=== PATIENT | male | born 1960 | race Caucasian/White ===

== ENCOUNTER → 2019-12-04 10:22 | Outpatient (BNVA) | payer MEDICAID, SELFPAY | PROVIDERS: Family Provider Family Medicine; Referring Provider Family Medicine; Visit Provider Otolaryngology | DX: H93.12 Tinnitus, left ear (principal); H91.92 Unspecified hearing loss, left ear; J32.9 Chronic sinusitis, unspecified; J34.2 Deviated nasal septum; J34.3 Hypertrophy of nasal turbinates | CPT/HCPCS: 99203; 99214 ==

== ENCOUNTER 2019-12-14 13:41 | Outpatient (CLI) | payer MEDICAID, SELFPAY ==
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
== END 2019-12-14 13:42 | disposition home or self-care (01) ==
LOC: CT 13:42
PROVIDERS: Family Provider Family Medicine; PCP Family Medicine; Visit Provider Otolaryngology
DX: J32.9 Chronic sinusitis, unspecified (principal); H91.90 Unspecified hearing loss, unspecified ear; H93.19 Tinnitus, unspecified ear; J34.2 Deviated nasal septum; J34.3 Hypertrophy of nasal turbinates
CPT/HCPCS: 70480; 70486

== ENCOUNTER → 2019-12-19 13:15 | Outpatient (BNVA) | payer MEDICAID, SELFPAY | PROVIDERS: Family Provider Family Medicine; PCP Family Medicine; Visit Provider Otolaryngology | DX: H91.93 Unspecified hearing loss, bilateral (principal); H93.13 Tinnitus, bilateral; J34.2 Deviated nasal septum; J34.3 Hypertrophy of nasal turbinates; J32.9 Chronic sinusitis, unspecified; J32.8 Other chronic sinusitis | CPT/HCPCS: 96372; 99214; J3301 ==

== ENCOUNTER 2020-05-17 18:27 | Emergency (ER) | payer MEDICAID, SELFPAY ==
[2020-05-17 18:37] VITALS: BP 193/103; PULSE 95; RESP 16; TEMP 36.6; O2SAT 95; BMI 35.9
--- NOTE | 2020-05-17 18:52 | W.ED.BACK ---
HPI - Back Pain/Injury General: Chief Complaint: Back Pain/Injury Stated Complaint: mid back pain Time Seen by Provider: 05/17/20 18:47 History of Present Illness: HPI Narrative: Patient is a 60-year-old male who comes to the ED with thoracic back pain. He denies any injury trauma or accident to cause back pain. Patient says he has a past medical history of chronic lower back pain and has had a lumbar fusion surgery in 2010. He currently rates the pain a 9 out of 10. It is located midthoracic on both right and left sides. He has been taking ibuprofen for the pain at home. Patient denies any bladder or bowel incontinence, loss of sensation the pelvic region, weakness or numbness to lower extremities. Denies any pain radiating down the leg. Associated symptoms: Deny abdominal pain, chills, dysuria, fatigue, fever(s), hematuria, nausea or vomiting Review of Systems Const: Denies: fever(s), chills or fatigue Eyes: Denies: change in vision or eye discomfort ENMT: Denies: throat pain, odynophagia, nasal discharge or nasal congestion Card: Denies: chest pain, palpitations, edema, swelling of feet/ankles, dyspnea on exertion or orthopnea Resp: Denies: dyspnea, productive cough or non-productive cough GI: Denies: abdominal pain, nausea, vomiting, diarrhea, constipation or hematochezia : Denies: flank pain, difficulty urinating, dysuria or hematuria Musc: Reports: back pain; Denies: neck pain or extremity swelling Skin/Breast: Denies: rash or new lesions Neuro: Denies: headache(s), numbness in extremities or weakness in extremities [facility] ED PFSH: Medical History Chronic sinusitis Hearing loss Nasal septal deformity Nasal turbinate hypertrophy Tinnitus Family History Other Cancer Diabetes Hypertension Social History Smoking and tobacco status: former smoker Alcohol intake: never Physical Exam Const: COMMON NORMALS: no acute distress, patient oriented x3 and alert GENERAL APPEARANCE: cooperative and comfortable HENMT: COMMON NORMALS: normocephalic HEAD & SCALP: normocephalic MOUTH: Normal oral and palatal mucosa present THROAT: posterior oropharynx normal and uvula midline Eye: COMMON NORMALS: Equal, round and reactive pupils present PUPIL: Yes Equal, round and reactive pupils present Neck/C-Spine: COMMON NORMALS: supple GENERAL: Yes normal visual inspection Resp: COMMON NORMALS: normal respiratory effort, No retractions, No use of accessory muscles and clear to auscultation bilaterally AUSCULTATION: clear to auscultation bilaterally Cardio: COMMON NORMALS: regular rate, regular rhythm, S1 normal heart sound present, S2 normal heart sound present, No gallops present (Cardio), No clicks present (Cardio), No murmurs present (Cardio) and Peripheral pulses 2+ throughout RATE: regular rate RHYTHM: regular rhythm HEART SOUNDS: S1 normal heart sound present and S2 normal heart sound present PERIPHERAL PULSES: Peripheral pulses 2+ throughout GI: COMMON NORMALS: Normal to inspection, nondistended, normoactive bowel sounds present, Soft to palpation, non-tender and no masses PALPATION: Yes Soft to palpation : COMMON NORMALS: Yes no CVA tenderness BLADDER/KIDNEY EXAM: Yes no CVA tenderness Back/Pelvis: COMMON NORMALS: no CVA tenderness THORACIC SPINE/UPPER BACK: Yes paraspinal muscle tenderness Thoracic paraspinal muscle tenderness: bilateral Bilateral thoracic paraspinal muscle tenderness: T9, T10 and T11 Extremity: COMMON NORMALS: normal to inspection and no pedal edema Neuro: COMMON NORMALS: patient oriented x3 and moves all extremities SENSORIUM/ORIENTATION: Yes alert Skin: COMMON NORMALS: no rashes or lesions noted GENERAL SKIN EXAM: no rashes or lesions noted and dry skin Course Vital Signs: Vital signs: Vital Signs Temperature 97.9 F 05/17/20 18:37 Pulse Rate 95 05/17/20 18:37 Respiratory Rate 16 05/17/20 19:54 Blood Pressure 193/103 05/17/20 18:37 Pulse Oximetry 95 05/17/20 18:37 MDM - Back Pain/Injury MDM Narrative: Medical decision making narrative: Patient is a 60-year-old male who comes to the ED with nontraumatic thoracic back pain. Pain had been going on for the past 2 weeks. Patient has a past medical history of chronic lower back pain. Denies bladder and bowel incontinence, pelvic anesthesia, weakness or numbness to extremities, or pain radiating down any leg. Patient had paraspinal muscle tenderness bilaterally of the thoracic spine. Patient was given a shot of Toradol, Norflex and hydrocodone to help with pain. He was discharged with a prescription for Robaxin and told to continue taking his ibuprofen at home for pain as well. Apply ice and/or heat on lower back. Follow-up with PCP in 7 to 10 days for reevaluation. Return to ED precautions given. Patient understood and agreed with plan. Discharge Plan Discharge Patient Disposition: Home Clinical Impression: Thoracic back pain Qualifiers: Chronicity: acute Back pain laterality: bilateral Qualified Code(s): M54.6 - Pain in thoracic spine Condition: Stable Prescriptions: No Action losartan 50 mg tablet 50 mg PO DAILY RF: 0 levothyroxine 50 mcg capsule 50 mcg PO DAILY RF: 0 insulin lispro [Humalog KwikPen Insulin] 100 unit/mL insulin pen 12 unit SUBCUT TID RF: 0 Levemir FlexTouch U-100 Insuln 100 unit/mL (3 mL) insulin pen 100 unit SUBCUT DAILY RF: 0 meloxicam 15 mg tablet 15 mg PO DAILY RF: 0 Victoza 3-Osbaldo 0.6 mg/0.1 mL (18 mg/3 mL) pen injector See Rx Instructions .ROUTE .COMPLEX RF: 0 Discharge Orders: Discharge Order (Routine); Ordered 05/17/20 Ordered By: Arvind Black Referrals: Lenore Staton MD [Primary Care Provider] - Discharge Diet: Regular Discharge Activity: Increase activity as tolerated Patient Instructions: Back Pain (ED) Activity Restrictions/Additional Instructions: Follow-up with medical provider as directe 7-10 days. Continue taking ibuprofen or Tylenol for pain. Take medications as prescribed. Robaxin is a muscle relaxer and can cause drowsiness so take at night before going to bed. You can take the muscle relaxer during the day but use with caution due to its drowsiness side effect. Apply cold pack or heat on back and stretch daily. Return to the ER or your medical provider if condition worsens. Please read and understand discharge instructions. If any questions, please ask. 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
[2020-05-17] MEDS: HYDROcodone-acetaminophen 7.5-325 mg Tablet 1 TAB PO (19:42)
[2020-05-17] MEDS: ketorolac 60 mg/2 mL INJ IM (19:43)
[2020-05-17] MEDS: orphenadrine 30 mg/mL Inj 2 mL 60 MG IM (19:46)
[2020-05-17 19:54] VITALS: RESP 16
== END 2020-05-17 19:56 | disposition home or self-care (01) ==
PROVIDERS: Emergency Provider Physician Assistant; PCP Family Medicine
DX: M54.6 Pain in thoracic spine (principal); Z79.4 Long term (current) use of insulin; Z87.891 Personal history of nicotine dependence
CPT/HCPCS: 12345; 96372; 99281; 99283; J1885; J2360

== ENCOUNTER 2020-09-18 10:30 | Outpatient (CLI) | payer MEDICAID, SELFPAY ==
[2020-09-18 12:19] LABS: Basophils # 0.1 10^3/uL (0.0-0.1); Basophils % 0.9 %; Eosinophils # 0.2 10^3/uL (0.0-0.8); Eosinophils % 1.4 %; Hematocrit 56.7 % (42.0-52.0); Hemoglobin 18.7 g/dL (11.7-16.6); Lymphocytes % 25.6 %; Mean Corpuscular Hemoglobin 28.8 pg (28.0-34.0); Mean Corpuscular Volume 87.2 fL (80-94); Mean Platelet Volume 9.6 fL (7.4-10.4); Monocytes # 0.6 10^3/uL (0.2-0.9); Monocytes % 4.8 %; Neutrophils # 7.79 10^3/uL (1.8-7.7); Neutrophils % 67.1 %; Nucleated Red Blood Cells % 0 %; Platelet Count 257 10^3/cmm (130-400); Red Cell Distribution Width 14.1 % (12.1-15.1); White Blood Count 11.6 10^3/uL (4.0-10.0)
[2020-09-18 12:40] LABS: Alanine Aminotransferase 33 U/L (0-41); Albumin Level 4.1 g/dL (3.5-5.2); Alkaline Phosphatase 96 IU/L (40-130); Anion Gap 14.1 (5-19); Aspartate Amino Transferase 21 U/L (0-40); Blood Urea Nitrogen 11 mg/dL (6-20); Calcium 9.1 mg/dL (8.5-10.5); Carbon Dioxide 25 mmol/L (22-29); Chloride 100 mmol/L (98-107); Globulin 3.1 g/dL (1.3-4.6); Glomerular Filtration Rate 138.4 mL/min (90-130); Glucose 209 mg/dL (65-115); Lactate Dehydrogenase 200 U/L (135-225); Osmolality Calculated 286 mOsm/kg (285-295); Potassium 4.1 mmol/L (3.5-5.1); Sodium 135 mmol/L (136-145); Total Bilirubin 0.4 mg/dL (0.15-1.2); Total Protein 7.2 g/dL (6.6-8.7)
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
[2020-09-19 16:08] LABS: Erythropoietin 8.6 mIU/mL (2.6-18.5)
[2020-10-02 13:57] LABS: CALR Exon 9 Mutation NOT DETECTED (NOT DETECTED); CSF3R Exon 14/17 Mutation NOT DETECTED (NOT DETECTED); JAK2 Exon 12 Mutation NOT DETECTED (NOT DETECTED); JAK2 V617 Clinical Indication 5784600; JAK2 V617 Mutation NOT DETECTED (NOT DETECTED); JAK2 V617 Specimen Source EDTA; MPL Exon 12 Mutation NOT DETECTED (NOT DETECTED)
== END 2020-09-18 10:31 | disposition home or self-care (01) ==
LOC: ONCMED 10:32
PROVIDERS: PCP Nurse Practitioner Family; Visit Provider Internal Medicine Medical Oncology
DX: D75.1 Secondary polycythemia (principal); E11.42 Type 2 diabetes mellitus with diabetic polyneuropathy; I10 Essential (primary) hypertension; E78.5 Hyperlipidemia, unspecified; E03.9 Hypothyroidism, unspecified; M47.9 Spondylosis, unspecified; F41.9 Anxiety disorder, unspecified; F32.9 Major depressive disorder, single episode, unspecified
CPT/HCPCS: 36415; 80053; 82668; 83615; 85025; 99205

== ENCOUNTER 2020-09-20 05:53 | Outpatient (CLI) | payer MEDICAID, SELFPAY | END 2020-09-20 05:54 | disposition home or self-care (01) | LOC: ONCMED 05:54 | PROVIDERS: PCP Nurse Practitioner Family; Visit Provider Internal Medicine Medical Oncology | DX: D75.1 Secondary polycythemia (principal); E11.42 Type 2 diabetes mellitus with diabetic polyneuropathy; I10 Essential (primary) hypertension | CPT/HCPCS: 99195 ==

== ENCOUNTER → 2020-09-26 09:09 | Outpatient (BNVA) | payer MEDICAID, SELFPAY | PROVIDERS: PCP Nurse Practitioner Family; Referring Provider Nurse Practitioner Family; Visit Provider Anesthesiology | DX: M54.9 Dorsalgia, unspecified (principal); W34.00XD Accidental discharge from unspecified firearms or gun, subsequent encounter; G89.29 Other chronic pain; E11.40 Type 2 diabetes mellitus with diabetic neuropathy, unspecified; F17.220 Nicotine dependence, chewing tobacco, uncomplicated; Z71.6 Tobacco abuse counseling; Z79.891 Long term (current) use of opiate analgesic; Z79.4 Long term (current) use of insulin | CPT/HCPCS: 99204 ==

== ENCOUNTER 2020-10-22 13:15 | Outpatient (CLI) | payer MEDICAID, SELFPAY ==
[2020-10-22 14:21] LABS: Basophils # 0.1 10^3/uL (0.0-0.1); Basophils % 0.6 %; Eosinophils # 0.1 10^3/uL (0.0-0.8); Eosinophils % 0.6 %; Hematocrit 55.8 % (42.0-52.0); Hemoglobin 18.1 g/dL (11.7-16.6); Lymphocytes # 3.3 10^3/uL (0.8-4.8); Lymphocytes % 26.5 %; Mean Corpuscular HGB Conc 32.4 g/dL (30.0-36.0); Mean Corpuscular Hemoglobin 28.5 pg (28.0-34.0); Mean Corpuscular Volume 87.9 fL (80-94); Mean Platelet Volume 9.9 fL (7.4-10.4); Monocytes # 0.6 10^3/uL (0.2-0.9); Monocytes % 4.7 %; Neutrophils # 8.26 10^3/uL (1.8-7.7); Neutrophils % 67.3 %; Nucleated Red Blood Cells % 0 %; Platelet Count 282 10^3/cmm (130-400); Red Blood Count 6.35 10^6/uL (4.1-5.3); Red Cell Distribution Width 13.5 % (12.1-15.1); White Blood Count 12.3 10^3/uL (4.0-10.0)
== END 2020-10-22 13:16 | disposition home or self-care (01) ==
LOC: ONCMED 13:17
PROVIDERS: PCP Nurse Practitioner Family; Visit Provider Internal Medicine Medical Oncology
DX: D75.1 Secondary polycythemia (principal); E11.42 Type 2 diabetes mellitus with diabetic polyneuropathy; I10 Essential (primary) hypertension
CPT/HCPCS: 36415; 85025; 99195

== ENCOUNTER → 2020-10-25 08:46 | Outpatient (BNVA) | payer MEDICAID, SELFPAY | PROVIDERS: PCP Nurse Practitioner Family; Visit Provider Anesthesiology | DX: G89.29 Other chronic pain (principal); M54.9 Dorsalgia, unspecified; W34.00XA Accidental discharge from unspecified firearms or gun, initial encounter; M25.561 Pain in right knee; M25.562 Pain in left knee; F17.220 Nicotine dependence, chewing tobacco, uncomplicated; X58.XXXA Exposure to other specified factors, initial encounter; Z79.891 Long term (current) use of opiate analgesic | CPT/HCPCS: 99214 ==

== ENCOUNTER → 2020-10-31 08:45 | Outpatient (BNVA) | payer MEDICAID, SELFPAY | PROVIDERS: PCP Nurse Practitioner Family; Visit Provider Anesthesiology | DX: G89.29 Other chronic pain (principal); M25.561 Pain in right knee; M25.562 Pain in left knee; F17.220 Nicotine dependence, chewing tobacco, uncomplicated; Z79.891 Long term (current) use of opiate analgesic | CPT/HCPCS: 20610; 77002; 77003; J1030; J3490 ==

== ENCOUNTER 2020-11-22 09:18 | Outpatient (CLI) | payer MEDICAID, SELFPAY ==
[2020-11-22 09:54] LABS: Basophils # 0.1 10^3/uL (0.0-0.1); Basophils % 0.9 %; Eosinophils # 0.3 10^3/uL (0.0-0.8); Eosinophils % 2.5 %; Hematocrit 51.9 % (42.0-52.0); Hemoglobin 16.6 g/dL (11.7-16.6); Lymphocytes # 3.5 10^3/uL (0.8-4.8); Lymphocytes % 33.1 %; Mean Corpuscular Hemoglobin 28.4 pg (28.0-34.0); Mean Corpuscular Volume 88.9 fL (80-94); Mean Platelet Volume 9.9 fL (7.4-10.4); Monocytes # 0.7 10^3/uL (0.2-0.9); Monocytes % 6.2 %; Neutrophils # 5.98 10^3/uL (1.8-7.7); Neutrophils % 57.1 %; Nucleated Red Blood Cells % 0 %; Platelet Count 262 10^3/cmm (130-400); Red Blood Count 5.84 10^6/uL (4.1-5.3); Red Cell Distribution Width 13.4 % (12.1-15.1); White Blood Count 10.5 10^3/uL (4.0-10.0)
== END 2020-11-22 09:19 | disposition home or self-care (01) ==
LOC: ONCMED 09:20
PROVIDERS: PCP Nurse Practitioner Family; Visit Provider Internal Medicine Medical Oncology
DX: D75.1 Secondary polycythemia (principal); E11.9 Type 2 diabetes mellitus without complications; G62.9 Polyneuropathy, unspecified; I10 Essential (primary) hypertension
CPT/HCPCS: 36415; 85025

== ENCOUNTER → 2020-12-18 13:23 | Outpatient (BNVA) | payer MEDICAID, SELFPAY | PROVIDERS: PCP Nurse Practitioner Family; Visit Provider Anesthesiology | DX: G89.29 Other chronic pain (principal); M54.9 Dorsalgia, unspecified; W34.00XA Accidental discharge from unspecified firearms or gun, initial encounter; M25.561 Pain in right knee; M25.562 Pain in left knee; X58.XXXA Exposure to other specified factors, initial encounter; F17.220 Nicotine dependence, chewing tobacco, uncomplicated; Z79.891 Long term (current) use of opiate analgesic | CPT/HCPCS: 99214 ==

== ENCOUNTER 2020-12-19 12:14 | Outpatient (CLI) | payer MEDICAID, SELFPAY ==
[2020-12-19 12:58] LABS: Basophils # 0.1 10^3/uL (0.0-0.1); Eosinophils # 0.2 10^3/uL (0.0-0.8); Eosinophils % 1.6 %; Hematocrit 52.2 % (42.0-52.0); Hemoglobin 17.1 g/dL (11.7-16.6); Lymphocytes # 2.7 10^3/uL (0.8-4.8); Lymphocytes % 23.7 %; Mean Corpuscular HGB Conc 32.8 g/dL (30.0-36.0); Mean Corpuscular Hemoglobin 28.4 pg (28.0-34.0); Mean Corpuscular Volume 86.7 fL (80-94); Mean Platelet Volume 10.1 fL (7.4-10.4); Monocytes # 0.6 10^3/uL (0.2-0.9); Monocytes % 5.6 %; Neutrophils # 7.67 10^3/uL (1.8-7.7); Neutrophils % 67.9 %; Nucleated Red Blood Cells % 0 %; Platelet Count 264 10^3/cmm (130-400); Red Blood Count 6.02 10^6/uL (4.1-5.3); Red Cell Distribution Width 13.4 % (12.1-15.1); White Blood Count 11.3 10^3/uL (4.0-10.0)
== END 2020-12-19 12:15 | disposition home or self-care (01) ==
LOC: ONCMED 12:15
PROVIDERS: PCP Nurse Practitioner Family; Visit Provider Internal Medicine Medical Oncology
DX: D75.1 Secondary polycythemia (principal); E11.9 Type 2 diabetes mellitus without complications; G62.9 Polyneuropathy, unspecified; I10 Essential (primary) hypertension
CPT/HCPCS: 36415; 85025

== ENCOUNTER → 2020-12-26 09:10 | Outpatient (BNVA) | payer MEDICAID, SELFPAY | PROVIDERS: PCP Nurse Practitioner Family; Referring Provider Nurse Practitioner Family; Visit Provider Specialist | DX: M25.569 Pain in unspecified knee (principal); G89.29 Other chronic pain; M17.0 Bilateral primary osteoarthritis of knee | CPT/HCPCS: 73560; 73565 ==

== ENCOUNTER 2020-12-26 10:57 | Outpatient (CLI) | payer MEDICAID, SELFPAY | END 2020-12-26 10:58 | disposition home or self-care (01) | LOC: SPT 10:57 | PROVIDERS: PCP Nurse Practitioner Family; Visit Provider Specialist | DX: Z46.89 Encounter for fitting and adjustment of other specified devices (principal); M17.12 Unilateral primary osteoarthritis, left knee | CPT/HCPCS: 97760; L1812 ==

== ENCOUNTER 2021-01-20 12:28 | Outpatient (CLI) | payer MEDICAID, SELFPAY ==
[2021-01-20 13:12] LABS: Basophils # 0.1 10^3/uL (0.0-0.1); Basophils % 0.7 %; Eosinophils # 0.1 10^3/uL (0.0-0.8); Eosinophils % 0.9 %; Hematocrit 51.4 % (42.0-52.0); Hemoglobin 16.7 g/dL (11.7-16.6); Lymphocytes # 2.8 10^3/uL (0.8-4.8); Lymphocytes % 22.6 %; Mean Corpuscular HGB Conc 32.5 g/dL (30.0-36.0); Mean Corpuscular Hemoglobin 28.2 pg (28.0-34.0); Mean Corpuscular Volume 86.8 fL (80-94); Mean Platelet Volume 9.7 fL (7.4-10.4); Monocytes # 0.8 10^3/uL (0.2-0.9); Monocytes % 6.7 %; Neutrophils # 8.49 10^3/uL (1.8-7.7); Neutrophils % 67.9 %; Nucleated Red Blood Cells % 0 %; Platelet Count 276 10^3/cmm (130-400); Red Blood Count 5.92 10^6/uL (4.1-5.3); Red Cell Distribution Width 14.3 % (12.1-15.1); White Blood Count 12.5 10^3/uL (4.0-10.0)
== END 2021-01-20 12:29 | disposition home or self-care (01) ==
LOC: ONCMED 12:31
PROVIDERS: PCP Nurse Practitioner Family; Visit Provider Internal Medicine Medical Oncology
DX: D75.1 Secondary polycythemia (principal)
CPT/HCPCS: 36415; 85025

== ENCOUNTER 2021-02-20 13:41 | Outpatient (CLI) | payer MEDICAID, SELFPAY ==
[2021-02-20 15:06] LABS: Basophils # 0.1 10^3/uL (0.0-0.1); Basophils % 0.5 %; Eosinophils # 0.1 10^3/uL (0.0-0.8); Eosinophils % 0.5 %; Hematocrit 53.4 % (42.0-52.0); Hemoglobin 17.2 g/dL (11.7-16.6); Lymphocytes % 20.5 %; Mean Corpuscular HGB Conc 32.2 g/dL (30.0-36.0); Mean Platelet Volume 9.9 fL (7.4-10.4); Monocytes # 0.7 10^3/uL (0.2-0.9); Monocytes % 4.9 %; Neutrophils # 10.83 10^3/uL (1.8-7.7); Neutrophils % 73.3 %; Nucleated Red Blood Cells % 0 %; Platelet Count 241 10^3/cmm (130-400); Red Blood Count 6.14 10^6/uL (4.1-5.3); Red Cell Distribution Width 16.4 % (12.1-15.1); White Blood Count 14.8 10^3/uL (4.0-10.0)
--- NOTE | 2021-02-21 06:47 | ONC FU_ITS ---
Dr. Herbert Patient Follow-Up Note Patient: Wilver Boss Unit #: [id number]: 1960 Dicatated By: Jamshid Herbert M.D.Date of Visit:February 20, 2021 Onc Med Follow-up/Prog Note Chief Complaint: Polycythemia. History of Present Illness: This is a 60-year-old man with secondary polycythemia. He had initially been seen here by Dr. Campo in March 2012. His hemoglobin was elevated in the range of 18 g. A JAK2 gene mutation study was negative. He had been smoking a pack to pack and half of cigarettes daily for 30 years. 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 He was last seen by Dr. Campo in July 2013. At that point he had stopped smoking. He subsequently was able to stop his phlebotomies. On a recent follow-up visit with Trang Holden he was again noted to have significantly elevated hemoglobin/hematocrit levels at 19.0 g and 56.8% respectively. His white blood cell count was slightly elevated at 11,000. His platelet count was normal at 263,000. I had seen him initially on 09/18/2020. He complained of feeling tired and rundown. He had started smoking again about 4 weeks earlier, attributed to stress. His CBC showed significantly elevated hemoglobin at 18.7 g with hematocrit 56.7%, and he was phlebotomized. At that time I also opted to repeat his molecular studies, mainly because his white blood cell count was also mildly elevated. Those were again negative. He was then phlebotomized again the following month with his hemoglobin remaining elevated at 18.1 g and hematocrit 55.8%. His subsequent monthly CBCs showed just mildly elevated hematocrit levels in the range of 51 to 52%. His other medical illnesses include hypertension, hyperlipidemia, type 2 diabetes, hypothyroidism, peripheral neuropathy, degenerative arthritis/degenerative disease of the spine, and chronic anxiety. He is seen for a follow-up visit. He continues to complain that he feels worn out and tired. He did have a little bit of symptomatic improvement with his phlebotomies, but it was not dramatic. He is still able to do some light work. His ECOG score is 1. Appetite is variable. His weight is down 5 pounds. He does not have fever. He sometimes has sweating at night. He has a little bit of sinus drainage. He has some cough, but not very much. He does get short of breath with activity, though he says his breathing is fine. He is still smoking 1 pack of cigarettes daily. He does not complain of chest pain. He has no GI complaints. He says his bladder works overtime. He has chronic back pain. Recently he is also been getting shots in his knees. He has occasional headache. He recently had an episode of dizziness, which was the first he had experienced in quite some time. He has neuropathy symptoms in his legs and feet which are unchanged. He has chronic anxiety associated with PTSD. Medications: Euthyrox 1 Tablet (of 50 mcg) Oral daily, HumaLOG 12 Units (of 100 Units/mL) Subcutaneous t.i.d., HYDROcodone-Acetaminophen 1 Tablet (of 5-325 mg) Oral b.i.d. PRN, Janumet 1 Tablet (of 50-500 mg) Oral b.i.d., Levemir (100 Units/mL) Subcutaneous Take as Directed, Losartan Potassium 1 Tablet (of 50 mg) Oral daily, Pravastatin Sodium 1 Tablet (of 20 mg) Oral daily Allergies: No Known Allergies. Vital Signs: Performed on February 20, 2021 15:23 Height - 70.00 in Weight - 245.6 lbs (LOW) BSA - 2.28 sq.m BMI - 35.24 (HIGH) Temperature - 98.2 F (LOW) Pulse - 98 /min Respiration - 17 /min BP - 138/77 mm(hg) O2 Sat - 94 % (LOW) Pain - 0 Physical Examination: Constitutional - He appears chronically ill, Eyes - Sclerae nonicteric. Conjunctivae clear, ENMT - No lesions noted in the oral cavity, Hematologic/Lymphatic - No cervical, clavicular, or axillary adenopathy, Respiratory - Lungs sound clear with diminished air movement bilaterally, Cardiovascular - Heart rhythm is regular. There is no murmur, gallop, or rub noted, Abdomen - Soft. Liver and spleen are not enlarged. There is no abdominal mass or ascites noted and there is no inguinal adenopathy, Extremities - There are venous stasis changes bilaterally and there is mild edema, Neurologic - No focal neurologic deficits noted. Lab/Imaging: Test performed on February 20, 2021 14:45 WBC 14.8 10 3/uL RBC 6.14 10 6/uL HGB 17.2 g/dL HCT 53.4 % MCV 87.0 fL MCH 28.0 pg MCHC 32.2 g/dL RDW 16.4 % Platelet Count 241 10 3/cmm MPV 9.9 fL Neutrophils 10.83 10 3/uL Lymphocytes 3.0 10 3/uL Monocytes 0.7 10 3/uL Eosinophils 0.1 10 3/uL Basophils 0.1 10 3/uL Neutrophil % 73.3 % Lymphocyte % 20.5 % Monocyte % 4.9 % Eosinophil % 0.5 % Basophils % 0.5 % NRBC % 0 % Test performed on Sep 18, 2020 12:08 LDH (Total) 200 U/L Sodium 135 mmol/L Potassium 4.1 mmol/L Chloride 100 mmol/L CO2 25 mmol/L Anion Gap 14.1 BUN 11 mg/dL Creatinine 0.6 mg/dL Cr Clearance (Est) 215.9400 mL/min eGFR 138.4 mL/min Glucose 209 mg/dL Osmolality - Calculated 286 mOsm/kg Calcium 9.1 mg/dL Protein, Total 7.2 g/dL Albumin 4.1 g/dL Globulin 3.1 g/dL Bilirubin, Total 0.4 mg/dL ALT (SGPT) 33 U/L AST (SGOT) 21 U/L Alkaline Phosphatase 96 IU/L Erythropoietin 8.6 mIU/mL Problem List: 1. 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 2. He has a significant smoking history. He had stopped smoking for 7-1/2 years, but he recently started again in August 2020. 3. Hypertension. 4. Hyperlipidemia. 5. Type 2 diabetes. 6. Peripheral neuropathy. 7. Hypothyroidism. 8. Degenerative arthritis/degenerative disease of the spine. 9. Anxiety/depression. Problems Addressed with this Encounter and Plan: Patient with significantly elevated hemoglobin/hematocrit levels, presumed to be secondary polycythemia due to smoking. Polycythemia rubra vera, though, was not completely excluded, particularly in view of the fact that he also has a slightly elevated white blood cell count. However, his repeat molecular analysis in September 2020 was again negative. At that time was phlebotomized with his hematocrit significantly elevated at 56.7 % and was phlebotomized again in October 2020 with his hematocrit still high at 55.8%. He did have some symptomatic improvement with the phlebotomies, but it was not dramatic. During subsequent follow-up his monthly hemoglobin/hematocrit levels were just mildly elevated. At this point he continues to complain that he is tired and worn out and he does have shortness of breath. There is just been a slight further increase in his hemoglobin/hematocrit levels to 17.2 g and 53.4%. At this level, I do not think phlebotomy will be beneficial, but I do want to schedule him for CT pulmonary angiogram to exclude other potential contributing causes to his symptoms. If that is negative, I will just plan to repeat his CBC in 3 months and to see him again in 6 months. Signed By: Jamshid Herbert M.D. <<Signature on File>>
== END 2021-02-20 13:42 | disposition home or self-care (01) ==
LOC: ONCMED 13:43
PROVIDERS: PCP Nurse Practitioner Family; Visit Provider Internal Medicine Medical Oncology
DX: D75.1 Secondary polycythemia (principal); F17.210 Nicotine dependence, cigarettes, uncomplicated; I10 Essential (primary) hypertension; E78.5 Hyperlipidemia, unspecified; E11.42 Type 2 diabetes mellitus with diabetic polyneuropathy; E03.9 Hypothyroidism, unspecified; M47.9 Spondylosis, unspecified; F41.9 Anxiety disorder, unspecified; F32.9 Major depressive disorder, single episode, unspecified; Z79.899 Other long term (current) drug therapy
CPT/HCPCS: 36415; 85025; 99214

== ENCOUNTER 2021-03-19 13:02 | Outpatient (CLI) | payer MEDICAID, SELFPAY ==
--- NOTE | 2021-03-19 13:09 | CT_ITS ---
WS: [id number] CT CHEST ANGIOGRAPHY WITH REFORMATS HISTORY: SHORTNESS OF BREATH TECHNIQUE: Contiguous axial images are obtained through the chest during arterial injection of intrav enous contrast. Images are reconstructed to evaluate the pulmonary arteries. MIP imaging also reviewe d. All CT scans at [facility] use at least one of these dose optimization techniques: aut omated exposure control; mA and/or kV adjustment per patient size (includes targeted exams where dose is matched to clinical indication); or iterative reconstruction. CONTRAST: Omnipaque 350; 95 mL IV. DLP: 837.52 mGycm COMPARISON: None available. Mixed opacification in the main pulmonary arteries bilaterally. Additional filling defects extending into the segmental branches of the LEFT upper lobe and subsegmental of the RIGHT lower lobe. Normal s ize aorta. Normal size heart. No RIGHT heart strain. Mild ventricular hypertrophy. No pericardial or pleural effusions. No pneumonia. Calcified granuloma. Interlobar lymph nodes along the fissures of th e RIGHT lung. RIGHT hilar lymph node at 9 mm. There are smaller lymph nodes at the LEFT hilum. No osseous abnormali ties. CT/CT angio chest PE protcl [id number] Impression: 1. Central bilateral main pulmonary artery emboli with extension into the prox imal segmental branches and minimal extension into the RIGHT lower lobe subsegm ental artery. 2. No pneumonia. 3. Mild LEFT ventricular hypertrophy. Notified Jamshid Herbert MD at 03/19/2021 2:04 PM.
[2021-03-19] MEDS: iohexol 350 mg/mL 100 mL Btl IV (13:31)
== END 2021-03-19 13:03 | disposition home or self-care (01) ==
LOC: RADWPI 13:06 → ONCMED 15:43
PROVIDERS: PCP Nurse Practitioner Family; Visit Provider Internal Medicine Medical Oncology
DX: D75.1 Secondary polycythemia (principal); E11.42 Type 2 diabetes mellitus with diabetic polyneuropathy; I10 Essential (primary) hypertension; Z79.899 Other long term (current) drug therapy
CPT/HCPCS: 71275; 96372; Q9967

== ENCOUNTER 2021-03-27 06:50 | Outpatient (CLI) | payer MEDICAID, SELFPAY ==
[2021-03-27 13:01] LABS: Basophils # 0.1 10^3/uL (0.0-0.1); Basophils % 0.9 %; Eosinophils # 0.2 10^3/uL (0.0-0.8); Eosinophils % 1.4 %; Hematocrit 52.9 % (42.0-52.0); Hemoglobin 17.1 g/dL (11.7-16.6); Lymphocytes # 3.2 10^3/uL (0.8-4.8); Lymphocytes % 27.9 %; Mean Corpuscular HGB Conc 32.3 g/dL (30.0-36.0); Mean Corpuscular Volume 86.7 fL (80-94); Mean Platelet Volume 10.6 fL (7.4-10.4); Monocytes # 0.7 10^3/uL (0.2-0.9); Monocytes % 6.2 %; Neutrophils % 63.3 %; Nucleated Red Blood Cells % 0 %; Platelet Count 238 10^3/cmm (130-400); Red Cell Distribution Width 14.8 % (12.1-15.1); White Blood Count 11.4 10^3/uL (4.0-10.0)
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
== END 2021-03-27 06:51 | disposition home or self-care (01) ==
LOC: ONCMED 06:53
PROVIDERS: PCP Nurse Practitioner Family; Visit Provider Nurse Practitioner
DX: D75.1 Secondary polycythemia (principal)
CPT/HCPCS: 85025; 99215

== ENCOUNTER 2021-03-28 13:47 | Outpatient (CLI) | payer MEDICAID, SELFPAY ==
--- NOTE | 2021-03-28 15:30 | USCV_ITS ---
Karyn Wilver Age: 61 Gender: M : 1960 Exam Date: 03/28/2021 14:09 Ordering Phys: Jamshid Herbert MD Technologist: Quin Brownlee Exam Location: [facility] [place] Indication: PE, pain both legs PROCEDURES: The venous duplex Doppler examination of both lower extremities was performed in the standard fashion. Bilaterally, the common femoral, superficial femoral, profunda femoral, popliteal, posterior tibial, greater saphenous veins, and the peroneal trunk were identified and interrogated in the standard fashion. These veins were found to be easily compressible with spontaneous blood flow. No evidence of insufficiency or thrombus noted. In addition, the posterior tibial and peroneal trunk were evaluated. FINDINGS: Normal 2-D Doppler and augmentation and compressibility throughout the lower extremity venous structures. Additional imaging through the proximal calf veins also reveals no thrombus. Limited evaluation of the greater saphenous vein is patent with no thrombus. CONCLUSIONS No DVT bilateral lower extremities. Dr. Mary Kate Jones DO (Electronically Signed) Final Date: 28 March 2021 15:48 S
== END 2021-03-28 13:48 | disposition home or self-care (01) ==
LOC: US 13:49
PROVIDERS: PCP Nurse Practitioner Family; Visit Provider Internal Medicine Medical Oncology
DX: M79.604 Pain in right leg (principal); M79.605 Pain in left leg; I26.99 Other pulmonary embolism without acute cor pulmonale
CPT/HCPCS: 93970

== ENCOUNTER 2021-04-10 09:34 | Outpatient (CLI) | payer MEDICAID, SELFPAY ==
[2021-04-11 18:14] LABS: Erythropoietin 13.4 mIU/mL (2.6-18.5)
== END 2021-04-10 09:35 | disposition home or self-care (01) ==
PROVIDERS: PCP Nurse Practitioner Family; Visit Provider Internal Medicine Critical Care Medicine
DX: D75.1 Secondary polycythemia (principal)
CPT/HCPCS: 36415; 82668

== ENCOUNTER 2021-04-15 06:20 | Outpatient (CLI) | payer MEDICAID, SELFPAY ==
[2021-04-15 14:21] LABS: Basophils # 0.1 10^3/uL (0.0-0.1); Basophils % 0.7 %; Eosinophils # 0.2 10^3/uL (0.0-0.8); Eosinophils % 1.5 %; Hematocrit 51.9 % (42.0-52.0); Hemoglobin 16.9 g/dL (11.7-16.6); Lymphocytes # 3.2 10^3/uL (0.8-4.8); Lymphocytes % 25.8 %; Mean Corpuscular HGB Conc 32.6 g/dL (30.0-36.0); Mean Corpuscular Hemoglobin 28.3 pg (28.0-34.0); Mean Corpuscular Volume 86.8 fL (80-94); Mean Platelet Volume 9.7 fL (7.4-10.4); Monocytes # 0.7 10^3/uL (0.2-0.9); Monocytes % 5.7 %; Neutrophils # 8.07 10^3/uL (1.8-7.7); Neutrophils % 66.1 %; Nucleated Red Blood Cells % 0 %; Platelet Count 248 10^3/cmm (130-400); Red Blood Count 5.98 10^6/uL (4.1-5.3); Red Cell Distribution Width 14.6 % (12.1-15.1); White Blood Count 12.2 10^3/uL (4.0-10.0)
--- NOTE | 2021-04-19 13:21 | ONC FU_ITS ---
Dr. Herbert Patient Follow-Up Note Patient: Wilver Boss Unit #: [id number]: 1960 Dicatated By: Jamshid Herbert M.D.Date of Visit:Apr 15, 2021 Onc Med Follow-up/Prog Note Chief Complaint: Polycythemia. History of Present Illness: This is a 60-year-old man with secondary polycythemia. He had initially been seen here by Dr. Campo in March 2012. His hemoglobin was elevated in the range of 18 g. A JAK2 gene mutation study was negative. He had been smoking a pack to pack and half of cigarettes daily for 30 years. 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 He was last seen by Dr. Campo in July 2013. At that point he had stopped smoking. He subsequently was able to stop his phlebotomies. On a recent follow-up visit with Trang Holden he was again noted to have significantly elevated hemoglobin/hematocrit levels at 19.0 g and 56.8% respectively. His white blood cell count was slightly elevated at 11,000. His platelet count was normal at 263,000. I had seen him initially on 09/18/2020. He complained of feeling tired and rundown. He had started smoking again about 4 weeks earlier, attributed to stress. His CBC showed significantly elevated hemoglobin at 18.7 g with hematocrit 56.7%, and he was phlebotomized. At that time I also opted to repeat his molecular studies, mainly because his white blood cell count was also mildly elevated. Those were again negative. He was then phlebotomized again the following month with his hemoglobin remaining elevated at 18.1 g and hematocrit 55.8%. His subsequent monthly CBCs showed just mildly elevated hematocrit levels in the range of 51 to 52%. His other medical illnesses include hypertension, hyperlipidemia, type 2 diabetes, hypothyroidism, peripheral neuropathy, degenerative arthritis/degenerative disease of the spine, and chronic anxiety. INTERIM HISTORY: At his follow-up visit on 02/20/2021 he complained of being very worn out and tired and he also reported some shortness of breath with activity. His oxygen saturation was a little low at 94%. Given the extent of his fatigue, I had recommended further evaluation with CT pulmonary angiogram. For some reason he wanted to put that off, the study was not done until 03/19/2021. However, it showed central bilateral main pulmonary artery emboli with extension into the proximal segmental branches and with minimal extension into the right lower lobe subsegmental artery. There were no acute pulmonary infiltrates. There was mild left ventricular hypertrophy. He began on anticoagulation with apixaban. His subsequent venous Doppler showed no evidence for DVT in the bilateral lower extremities. He is seen for a follow-up visit. He continues to have poor energy. He says it falls away by afternoon. He has limited activity. ECOG score is 2. His appetite is not so good. His weight is down a couple of pounds. He has not had fever. Lately he has had some hard sweating at night. He has sinus headache 2 or 3 days a week. He does get short of breath with activity, but he says his breathing is not too bad. He has cough, attributable to smoking. He does not complain of chest pain. He has loose stools constantly, attributable to irritable bowel syndrome. He has no other GI or complaints. He has pain in his knees and he has chronic back pain. He has a little bit of dizziness. He has neuropathy in his feet. He also reports having numbness in his right leg. Medications: Eliquis 1 Tablet (of 5 mg) Oral b.i.d., Euthyrox 1 Tablet (of 50 mcg) Oral daily, Janumet 1 Tablet (of 50-500 mg) Oral b.i.d., Losartan Potassium 1 Tablet (of 50 mg) Oral daily Allergies: No Known Allergies. Vital Signs: Performed on Apr 15, 2021 15:34 Height - 70.00 in Weight - 243.6 lbs (LOW) BSA - 2.27 sq.m BMI - 34.95 (HIGH) Temperature - 97.1 F (LOW) Pulse - 88 /min Respiration - 18 /min BP - 167/78 mm(hg) (HIGH) O2 Sat - 94 % (LOW) Pain - 7 Fatigue - 8 Physical Examination: Constitutional - He appears somewhat weak generally, Eyes - Sclerae nonicteric. Conjunctivae clear, ENMT - No lesions noted in the oral cavity, Hematologic/Lymphatic - No cervical, clavicular, or axillary adenopathy, Respiratory - Lungs sound clear with diminished air movement bilaterally, Cardiovascular - Heart rhythm is regular. There is no murmur, gallop, or rub noted, Abdomen - Soft. Liver and spleen are not enlarged. There is no abdominal mass or ascites noted and there is no inguinal adenopathy, Extremities - There are venous stasis changes bilaterally. There is slight edema, Neurologic - No focal neurologic deficits noted. Lab/Imaging: CBC shows hemoglobin 16.9 g with hematocrit 51.9%. The white blood cell count is 12,200. The platelet count is 248,000. Problem List: 1. 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 2. He had CT evidence of major pulmonary emboli by CT pulmonary angiogram on 03/19/2021. He is on anticoagulation with apixaban. 3. Hypertension. 4. Hyperlipidemia. 5. Type 2 diabetes. 6. Peripheral neuropathy. 7. Hypothyroidism. 8. Degenerative arthritis/degenerative disease of the spine. 9. Anxiety/depression. Problems Addressed with this Encounter and Plan: 1. 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 Polycythemia rubra vera, though, was not completely excluded, particularly in view of the fact that he also has a slightly elevated white blood cell count. However, his repeat molecular analysis in September 2020 was again negative. At that time was phlebotomized with his hematocrit significantly elevated at 56.7 % and was phlebotomized again in October 2020 with his hematocrit still high at 55.8%. He did have some symptomatic improvement with the phlebotomies, but it was not dramatic. During subsequent follow-up his monthly hemoglobin/hematocrit levels have been just mildly elevated. He has been followed expectantly. 2. CT pulmonary angiogram on 03/19/2021 showed major pulmonary emboli bilaterally. He began on anticoagulation with apixaban. He will continue the apixaban at 5 mg twice daily. I will plan a follow-up visit and repeat CT pulmonary angiogram in 1 month. Signed By: Jamshid Herbert M.D. <<Signature on File>>
== END 2021-04-15 06:21 | disposition home or self-care (01) ==
LOC: ONCMED 06:22
PROVIDERS: PCP Nurse Practitioner Family; Visit Provider Internal Medicine Medical Oncology
DX: D75.1 Secondary polycythemia (principal)
CPT/HCPCS: 36415; 85025; 99214

== ENCOUNTER 2021-04-23 11:00 | Outpatient (CLI) | payer MEDICAID, SELFPAY | END 2021-04-23 11:01 | disposition home or self-care (01) | LOC: SLEEP 04-24 10:49 | PROVIDERS: PCP Nurse Practitioner Family; Visit Provider Internal Medicine Critical Care Medicine | DX: D75.1 Secondary polycythemia (principal) | CPT/HCPCS: 94762 ==

== ENCOUNTER 2021-05-06 15:26 | Outpatient (CLI) | payer MEDICAID, SELFPAY ==
--- NOTE | 2021-05-06 15:45 | USCV_ITS ---
Wilver Boss Age: 61 Gender: M : 1960 Exam Date: 05/06/2021 15:45 Ordering Phys: Keiry Tang MD Technologist: Quin Brownlee [place] [facility] [place]: PE BP: 126 / 81 HR: 75 Rhythm: Sinus Technical Quality: Adequate MEASUREMENTS (Male / Female) Normal Values 2D ECHO LV Diastolic Diameter PLAX 4.4 cm 4.2 - 5.9 / 3.9 - 5.3 cm LV Systolic Diameter PLAX 2.8 cm IVS Diastolic Thickness 1.8 cm 0.6 - 1.0 / 0.6 - 0.9 cm IVS Systolic Thickness 1.8 cm LVPW Diastolic Thickness 1.3 cm 0.6 - 1.0 / 0.6 - 0.9 cm LVPW Systolic Thickness 1.8 cm LVOT Diameter 2.2 cm LV Ejection Fraction 2D Teich 67.5 % LV Ejection Fraction MOD 2C 52.5 % LV Ejection Fraction 2C AL 52.9 % LA Diameter 2.7 cm LA Width 3.4 cm LA Height 4.7 cm RA Width 2.7 cm RA Height 3.9 cm Aorta at Sinotubular Diameter 3.1 cm DOPPLER AV Peak Velocity 114.0 cm/s LVOT Peak Velocity 103.0 cm/s AV Area Cont Eq vti 3.3 cm squared AV Area Cont Eq pk 3.3 cm squared MV Peak Velocity 88.0 cm/s MV Area PHT 3.7 cm squared Mitral E to A Ratio 0.9 MV E' Velocity 77.0 cm/s PV Peak Velocity 69.0 cm/s RV Acceleration Time 0.2 s RV Ejection Time 0.2 s RV AcT/ET 0.7 FINDINGS Left Ventricle Normal left ventricular size, systolic function and wall thickness, with no regional wall motion abnormalities. Left ventricular ejection fraction is estimated at 60 %. Normal diastolic filling pattern. Right Ventricle Normal right ventricular size and systolic function. RVSP could not be calculated due to incomplete tricuspid regurgitation velocity profile. Right Atrium Normal right atrial size. Left Atrium Normal left atrial size. Mitral Valve Structurally normal mitral valve. No mitral valve stenosis. No mitral valve regurgitation. Aortic Valve Probably trileaflet aortic valve. No aortic valve stenosis. No aortic valve regurgitation. Tricuspid Valve Tricuspid valve not well visualized. Trace tricuspid valve regurgitation. Pulmonic Valve Pulmonic valve not well visualized. Probably normal pulmonary valve. No pulmonary valve stenosis. No significant pulmonary valve regurgitation. Pericardium No pericardial effusion. Aorta Normal size aortic root and proximal ascending aorta. CONCLUSIONS 1. Normal left ventricular size, systolic function and wall thickness, with no regional wall motion abnormalities. Left ventricular ejection fraction is estimated at 60 %. Normal diastolic filling pattern. 2. Normal right ventricular size and systolic function. 3. No significant valvular normality. 4. No prior similar studies to compare. Ana Lai MD (Electronically Signed) Final Date: 08 May 2021 18:01 S
== END 2021-05-06 15:27 | disposition home or self-care (01) ==
PROVIDERS: PCP Nurse Practitioner Family; Visit Provider Internal Medicine Critical Care Medicine
DX: I26.99 Other pulmonary embolism without acute cor pulmonale (principal)
CPT/HCPCS: 93306

== ENCOUNTER 2021-05-26 09:45 | Outpatient (CLI) | payer MEDICAID, SELFPAY ==
--- NOTE | 2021-05-26 10:21 | CT_ITS ---
WS: [id number] CTA OF THE CHEST WITH PULMONARY EMBOLISM PROTOCOL TECHNIQUE: High-resolution contrast enhanced CTA of the chest with coronal and sagittal reformatted i mages with pulmonary embolism protocol. MIP images are also reviewed. CLINICAL INFORMATION: PULMONARY EMBOLI COMPARISON: CTA 616 DLP: 640.[address] scans at [facility] use at least one of these dose optimization techniques: automat ed exposure control; mA and/or kV adjustment per patient size (includes targeted exams where dose is matched to clinical indication); or iterative reconstruction. FINDINGS: Proximal main pulmonary arteries are normal. Normal segmental and subsegmental pulmonary arteries. Pr eviously described pulmonary emboli resolved. Stable slightly prominent right hilar lymph node measur ing 8-9 mm. No new emboli. No acute pulmonary infiltrates. No consolidation or pleural fluid. Calcified granuloma left upper lob e. Partially calcified nodule along the right fissure measuring 6 mm is unchanged. A few tiny subpleu ral tiny nodules in the lung bases are unchanged. Adrenal glands are normal. Normal GE junction. CT/CT angio chest PE protcl [id number] IMPRESSION: 1. Previously described pulmonary emboli have resolved. No new pulmonary embol i. 2. No acute pulmonary infiltrates. 3. Stable slightly prominent right hilar lymph node measuring 8-9 mm.
[2021-05-26 10:34] LABS: Basophils # 0.1 10^3/uL (0.0-0.1); Basophils % 0.8 %; Eosinophils # 0.3 10^3/uL (0.0-0.8); Eosinophils % 2.3 %; Hematocrit 54.5 % (42.0-52.0); Hemoglobin 17.8 g/dL (11.7-16.6); Lymphocytes % 26.2 %; Mean Corpuscular HGB Conc 32.7 g/dL (30.0-36.0); Mean Corpuscular Hemoglobin 28.7 pg (28.0-34.0); Mean Corpuscular Volume 87.8 fl (80-94); Mean Platelet Volume 11.1 fL (7.4-10.4); Monocytes # 0.7 10^3/uL (0.2-0.9); Monocytes % 6.3 %; Neutrophils % 64.1 %; Nucleated Red Blood Cells % 0 %; Platelet Count 218 10^3/cmm (130-400); Red Blood Count 6.21 10^6/uL (4.1-5.3); Red Cell Distribution Width 14.2 % (12.1-15.1); White Blood Count 11.5 10^3/uL (4.0-10.0)
[2021-05-26] MEDS: iohexol 350 mg/mL 100 mL Btl IV (10:44)
[2021-05-26 10:55] LABS: Alanine Aminotransferase 21 U/L (0-41); Alkaline Phosphatase 92 IU/L (40-130); Aspartate Amino Transferase 14 U/L (0-40); Blood Urea Nitrogen 8 mg/dL (6-20); Calcium 8.9 mg/dL (8.5-10.5); Carbon Dioxide 22 mmol/L (22-29); Chloride 103 mmol/L (98-107); Globulin 2.9 g/dL (1.3-4.6); Glomerular Filtration Rate 170.2 mL/min (90-130); Glucose 180 mg/dL (65-115); Osmolality Calculated 289 mOsm/kg (285-295); Sodium 138 mmol/L (136-145); Total Bilirubin 0.4 mg/dL (0.15-1.2); Total Protein 6.9 g/dL (6.6-8.7)
[2021-05-26 10:58] LABS: Anion Gap 17.7 (5-19); Potassium 4.7 mmol/L (3.5-5.1)
== END 2021-05-26 09:46 | disposition home or self-care (01) ==
PROVIDERS: PCP Nurse Practitioner Family; Visit Provider Internal Medicine Medical Oncology
DX: I26.99 Other pulmonary embolism without acute cor pulmonale (principal); D75.1 Secondary polycythemia; R59.0 Localized enlarged lymph nodes; Z79.899 Other long term (current) drug therapy
CPT/HCPCS: 36415; 71275; 80053; 85025; Q9967

== ENCOUNTER 2021-06-04 06:15 | Outpatient (CLI) | payer MEDICAID, SELFPAY ==
[2021-06-04 14:11] LABS: Basophils # 0.1 10^3/uL (0.0-0.1); Basophils % 0.7 %; Eosinophils # 0.2 10^3/uL (0.0-0.8); Hemoglobin 18.1 g/dL (11.7-16.6); Lymphocytes # 3.5 10^3/uL (0.8-4.8); Monocytes # 0.8 10^3/uL (0.2-0.9); Nucleated Red Blood Cells % 0 %
[2021-06-04 14:57] LABS: Eosinophils % 1.4 %; Hematocrit 53.9 % (42.0-52.0); Lymphocytes % 25.4 %; Mean Corpuscular HGB Conc 33.6 g/dL (30.0-36.0); Mean Corpuscular Hemoglobin 29.6 pg (28.0-34.0); Mean Corpuscular Volume 88.1 fl (80-94); Mean Platelet Volume 10.4 fL (7.4-10.4); Monocytes % 5.7 %; Neutrophils # 9.04 10^3/uL (1.8-7.7); Neutrophils % 66.4 %; Platelet Count 250 10^3/cmm (130-400); Red Blood Count 6.12 10^6/uL (4.1-5.3); Red Cell Distribution Width 14.7 % (12.1-15.1); White Blood Count 13.6 10^3/uL (4.0-10.0)
== END 2021-06-04 06:16 | disposition home or self-care (01) ==
LOC: ONCMED 06:16
PROVIDERS: PCP Nurse Practitioner Family; Visit Provider Internal Medicine Medical Oncology
DX: I10 Essential (primary) hypertension (principal); E11.40 Type 2 diabetes mellitus with diabetic neuropathy, unspecified; Z79.899 Other long term (current) drug therapy
CPT/HCPCS: 85025; 99195

== ENCOUNTER → 2021-09-02 14:28 | Outpatient (BNVA) | payer MEDICAID, SELFPAY | PROVIDERS: PCP Nurse Practitioner Family; Referring Provider Nurse Practitioner Family; Visit Provider Orthopaedic Surgery | DX: M54.6 Pain in thoracic spine (principal); M54.50 Low back pain, unspecified; Z98.1 Arthrodesis status; M54.9 Dorsalgia, unspecified; M47.9 Spondylosis, unspecified | CPT/HCPCS: 72072; 72110 ==

== ENCOUNTER 2021-09-23 09:42 | Outpatient (CLI) | payer MEDICAID, SELFPAY ==
[2021-09-23 10:05] LABS: Basophils # 0.1 10^3/uL (0.0-0.1); Basophils % 0.8 %; Eosinophils # 0.3 10^3/uL (0.0-0.8); Eosinophils % 2.4 %; Hematocrit 53.6 % (42.0-52.0); Hemoglobin 17.5 g/dL (11.7-16.6); Lymphocytes # 3.5 10^3/uL (0.8-4.8); Lymphocytes % 29.1 %; Mean Corpuscular HGB Conc 32.6 g/dL (30.0-36.0); Mean Corpuscular Hemoglobin 27.9 pg (28.0-34.0); Mean Corpuscular Volume 85.5 fl (80-94); Mean Platelet Volume 9.9 fL (7.4-10.4); Monocytes # 0.7 10^3/uL (0.2-0.9); Monocytes % 6.2 %; Neutrophils # 7.26 10^3/uL (1.8-7.7); Neutrophils % 61.2 %; Nucleated Red Blood Cells % 0 %; Platelet Count 263 10^3/cmm (130-400); Red Blood Count 6.27 10^6/uL (4.1-5.3); Red Cell Distribution Width 14.2 % (12.1-15.1); White Blood Count 11.9 10^3/uL (4.0-10.0)
[2021-09-23 10:20] LABS: Alanine Aminotransferase 23 U/L (0-41); Alkaline Phosphatase 85 IU/L (40-130); Anion Gap 17.5 (5-19); Aspartate Amino Transferase 19 U/L (0-40); Blood Urea Nitrogen 9 mg/dL (6-20); Calcium 8.4 mg/dL (8.5-10.5); Carbon Dioxide 25 mmol/L (22-29); Chloride 101 mmol/L (98-107); Glomerular Filtration Rate 98.9 mL/min (90-130); Glucose 197 mg/dL (65-115); Osmolality Calculated 292 mOsm/kg (285-295); Potassium 4.5 mmol/L (3.5-5.1); Sodium 139 mmol/L (136-145); Total Bilirubin 0.3 mg/dL (0.15-1.2)
--- NOTE | 2021-09-23 19:45 | ONC FU_ITS ---
Dr. Herbert Patient Follow-Up Note Patient: Wilver Boss Unit #: [id number]: 1960 Dicatated By: Jamshid Herbert M.D.Date of Visit:Sep 23, 2021 Onc Med Follow-up/Prog Note Chief Complaint: Polycythemia/pulmonary emboli. History of Present Illness: This is a 60-year-old man with secondary polycythemia. In March 2021 he was found to have bilateral pulmonary emboli by CT pulmonary angiogram. He had initially been seen here by Dr. Campo in March 2012. His hemoglobin was elevated in the range of 18 g. A JAK2 gene mutation study was negative. He had been smoking a pack to pack and half of cigarettes daily for 30 years. 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 He was last seen by Dr. Campo in July 2013. At that point he had stopped smoking. He subsequently was able to stop his phlebotomies. On a recent follow-up visit with Trang Holden he was again noted to have significantly elevated hemoglobin/hematocrit levels at 19.0 g and 56.8% respectively. His white blood cell count was slightly elevated at 11,000. His platelet count was normal at 263,000. I had seen him initially on 09/18/2020. He complained of feeling tired and rundown. He had started smoking again about 4 weeks earlier, attributed to stress. His CBC showed significantly elevated hemoglobin at 18.7 g with hematocrit 56.7%, and he was phlebotomized. At that time I also opted to repeat his molecular studies, mainly because his white blood cell count was also mildly elevated. Those were again negative. He was then phlebotomized again the following month with his hemoglobin remaining elevated at 18.1 g and hematocrit 55.8%. His subsequent monthly CBCs showed just mildly elevated hematocrit levels in the range of 51 to 52%. His other medical illnesses include hypertension, hyperlipidemia, type 2 diabetes, hypothyroidism, peripheral neuropathy, degenerative arthritis/degenerative disease of the spine, and chronic anxiety. INTERIM HISTORY: At his follow-up visit on 02/20/2021 he complained of being very worn out and tired and he also reported some shortness of breath with activity. His oxygen saturation was a little low at 94%. Given the extent of his fatigue, I had recommended further evaluation with CT pulmonary angiogram. For some reason he wanted to put that off, and the study was not done until 03/19/2021. However, it showed central bilateral main pulmonary artery emboli with extension into the proximal segmental branches and with minimal extension into the right lower lobe subsegmental artery. There were no acute pulmonary infiltrates. There was mild left ventricular hypertrophy. He began on anticoagulation with apixaban. His subsequent venous Doppler showed no evidence for DVT in the bilateral lower extremities. During follow-up he continued to have significant fatigue. His repeat CT pulmonary angiogram on 05/26/2021 showed resolution of the pulmonary emboli. A slightly prominent right hilar lymph node appeared stable measuring 8 to 9 mm. He is seen for a follow-up visit. He continues to complain that his energy is not good. He has limited activity. ECOG score is 2. His appetite comes and goes. He has not had fever. He has been having sweating almost every night for the past year or so. He has been having some sinus headaches. He has not had sore mouth or throat, and he does not have difficulty swallowing. He says his breathing is not too bad, though he does have some shortness of breath and he has chronic cough. He is still smoking 1 pack of cigarettes daily. He does not complain of chest pain. He has not been having nausea, but he has been having abdominal discomfort and he complains that he has been gassy a lot. Bowel function has been okay. He has frequent urination. He complains that he is stiff and sore. He says that in the morning his whole body feels like he has been run over by a truck. He has been having significant pain in the mid to lower back. He reports having numbness in his legs and feet. He has seen Dr. Levin, and he was recommended to have further evaluation with CT myelogram. Medications: Eliquis 1 Tablet (of 5 mg) Oral b.i.d., Euthyrox 1 Tablet (of 50 mcg) Oral daily, Janumet 1 Tablet (of 50-500 mg) Oral b.i.d., Losartan Potassium 1 Tablet (of 50 mg) Oral daily Allergies: No Known Allergies. Vital Signs: Performed on Sep 23, 2021 11:43 Height - 70.00 in Weight - 243.0 lbs (LOW) BSA - 2.27 sq.m BMI - 34.87 (HIGH) Temperature - 96.6 F (LOW) Pulse - 88 /min Respiration - 16 /min BP - 180/95 mm(hg) (HIGH) O2 Sat - 95 % (LOW) Pain - 7 Fatigue - 8 Physical Examination: Constitutional - He appears somewhat weak generally, Eyes - Sclerae nonicteric. Conjunctivae clear, ENMT - No lesions noted in the oral cavity, Hematologic/Lymphatic - No cervical, clavicular, or axillary adenopathy, Respiratory - Lungs sound clear with diminished air movement bilaterally, Cardiovascular - Heart rhythm is regular. There is no murmur, gallop, or rub noted, Abdomen - Soft. Liver and spleen are not enlarged. There is no abdominal mass or ascites noted and there is no inguinal adenopathy, Back/Spine - There is some tenderness across the back at the level of the lower thoracic spine, Extremities - There are venous stasis changes bilaterally. There is no edema. Both calves feels soft, Neurologic - No focal neurologic deficits noted. Lab/Imaging: Test performed on Sep 23, 2021 09:51 Sodium 139 mmol/L Potassium 4.5 mmol/L Chloride 101 mmol/L CO2 25 mmol/L Anion Gap 17.5 BUN 9 mg/dL Creatinine 0.8 mg/dL Cr Clearance (Est) 155.0000 mL/min eGFR 98.9 mL/min Glucose 197 mg/dL Osmolality - Calculated 292 mOsm/kg Calcium 8.4 mg/dL Protein, Total 7.0 g/dL Albumin 4.0 g/dL Globulin 3.0 g/dL Bilirubin, Total 0.3 mg/dL ALT (SGPT) 23 U/L AST (SGOT) 19 U/L Alkaline Phosphatase 85 IU/L WBC 11.9 10 3/uL RBC 6.27 10 6/uL HGB 17.5 g/dL HCT 53.6 % MCV 85.5 fl MCH 27.9 pg MCHC 32.6 g/dL RDW 14.2 % Platelet Count 263 10 3/cmm MPV 9.9 fL Neutrophils 7.26 10 3/uL Lymphocytes 3.5 10 3/uL Monocytes 0.7 10 3/uL Eosinophils 0.3 10 3/uL Basophils 0.1 10 3/uL Neutrophil % 61.2 % Lymphocyte % 29.1 % Monocyte % 6.2 % Eosinophil % 2.4 % Basophils % 0.8 % NRBC % 0 % Problem List: 1. 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 2. He had CT evidence of major pulmonary emboli by CT pulmonary angiogram on 03/19/2021. He is on anticoagulation with apixaban. 3. Hypertension. 4. Hyperlipidemia. 5. Type 2 diabetes. 6. Peripheral neuropathy. 7. Hypothyroidism. 8. Degenerative arthritis/degenerative disease of the spine. 9. Anxiety/depression. Problems Addressed with this Encounter and Plan: 1. 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 Polycythemia rubra vera, though, was not completely excluded, particularly in view of the fact that he also has a slightly elevated white blood cell count. However, his repeat molecular analysis in September 2020 was again negative. At that time was phlebotomized with his hematocrit significantly elevated at 56.7 % and was phlebotomized again in October 2020 with his hematocrit still high at 55.8%. He did have some symptomatic improvement with the phlebotomies, but it was not dramatic. During subsequent follow-up his monthly hemoglobin/hematocrit levels have been just mildly elevated. For now he will continue expectant management. His blood count will be rechecked in 3 months. I will see him again in 6 months, or sooner as needed. 2. CT pulmonary angiogram on 03/19/2021 showed major pulmonary emboli bilaterally. He began on anticoagulation with apixaban. He will continue the apixaban at 5 mg twice daily. During follow-up he has continued to have fatigue and limited activity tolerance. His repeat CT pulmonary on 05/26/2021 showed resolution of the pulmonary emboli. Thus far there has been no apparent cause his episode of thromboembolism, but I remain very concerned about the possibility of underlying malignancy. As he has been having GI symptoms along with significant back pain, I am going to schedule him for CT abdomen/pelvis. He will have further evaluation as indicated. In the meantime, he will continue anticoagulation with apixaban 5 mg twice daily. Signed By: Jamshid Herbert M.D. <<Signature on File>>
== END 2021-09-23 09:43 | disposition home or self-care (01) ==
LOC: ONCMED 09:44
PROVIDERS: PCP Nurse Practitioner Family; Visit Provider Internal Medicine Medical Oncology
DX: D75.1 Secondary polycythemia (principal); Z79.01 Long term (current) use of anticoagulants; I10 Essential (primary) hypertension; E78.5 Hyperlipidemia, unspecified; E11.9 Type 2 diabetes mellitus without complications; G62.9 Polyneuropathy, unspecified; E03.9 Hypothyroidism, unspecified; M19.90 Unspecified osteoarthritis, unspecified site; F41.8 Other specified anxiety disorders; I26.99 Other pulmonary embolism without acute cor pulmonale; M54.9 Dorsalgia, unspecified
CPT/HCPCS: 36415; 80053; 85025; 99214

== ENCOUNTER 2021-09-29 20:00 | Outpatient (CLI) | payer MEDICAID, SELFPAY | END 2021-09-29 20:01 | disposition home or self-care (01) | LOC: SLEEP 09-30 07:48 | PROVIDERS: PCP Nurse Practitioner Family; Visit Provider Nurse Practitioner Family | DX: G47.10 Hypersomnia, unspecified (principal); R06.83 Snoring; R53.83 Other fatigue; G47.33 Obstructive sleep apnea (adult) (pediatric) | CPT/HCPCS: 95810 ==

== ENCOUNTER 2021-10-07 08:39 | Outpatient (CLI) | payer MEDICAID, SELFPAY ==
--- NOTE | 2021-10-07 08:48 | CT_ITS ---
WS: [id number] CT MYELOGRAM LUMBAR SPINE TECHNIQUE: CT myelogram of the lumbar spine with coronal and sagittal reformatted images. CLINICAL INFORMATION: M54.9 - Dorsalgia, unspecified COMPARISON: 2008 DLP: 1872.[address] scans at [facility] use at least one of these dose optimization techniques: automated e xposure control; mA and/or kV adjustment per patient size (includes targeted exams where dose is matc hed to clinical indication); or iterative reconstruction. FINDINGS: Mild lumbar curve. Grade 1 anterolisthesis L4 on L5 measuring 4.8 mm. Mild lumbar curve convex left. Pedicle screw fixation L4-5 with dorsolateral bone graft material and laminectomy defects. Solid appe aring right posterior lateral bony fusion. Incomplete fusion of the left posterior elements at the le kelle of the facets. Additional lucency extends into the left dorsal posterior elements with pseudoarth rosis about the left L5 pedicle screw. Hardware appears intact. L1-L2: Normal. L2-L3: Mild disc bulging with a shallow central disc protrusion. Mild central canal stenosis. Narrowi ng of the subarticular recess bilaterally. Mild facet arthropathy. Mild left foraminal narrowing. L3-L4: Shallow right pericentral protrusion impinges the traversing right L4 nerve root in the subart icular recess. Moderate central canal stenosis. Recommend correlation for right L4 nerve root symptom s. Mild right and no significant left foraminal narrowing. Moderate facet arthropathy with ligamentum flavum hypertrophy. L4-L5: Grade 1 anterolisthesis. Pedicle screw fixation with dorsal laminectomy defects and bone graft material. Mild right and no significant left foraminal narrowing. Moderate facet arthropathy. L5-S1: Mild disc bulging with osteophytic ridging. Slight contact of the right S1 nerve root. Mild ri ght and no significant left foraminal narrowing. Moderate facet arthropathy. Hypertrophic changes sacroiliac joints. CT/CT lumbar spine w con [id number] IMPRESSION: 1. Pedicle screw fixation L4-5 with laminectomy defects and dorsal lateral bon y fusion. 2. Incomplete posterior fusion L4-5 on the left with pseudoarthrosis extending about the left L5 pedicle screw. Solid appearing posterior fusion right. 3. Shallow right subarticular disc protrusion L3-4 with a small amount of kaya pheral calcification. Impingement traversing right L4 nerve root with moderate central canal stenosis. Moderate facet arthropathy at this level with ligamentu m flavum hypertrophy. 4. Mild central canal stenosis L2-3 with narrowing of subarticular recess bila terally. 5. Disc bulging L5-S1 with slight encroachment traversing right S1 nerve root in the subarticular recess. 6. Mild left L2-3, right L3-4, and right L4-5 foraminal narrowing. 7. Moderate facet arthropathy L3-4 L4-L5 and L5-S1.
--- NOTE | 2021-10-07 08:48 | IR_ITS ---
WS: [id number] MYELOGRAM LUMBAR SPINE Fluoroscopic guided lumbar myelogram CLINICAL INFORMATION: M54.9 - Dorsalgia, unspecified COMPARISON: CT myelogram lumbar 2009 TECHNIQUE: The procedure, including risks, benefits, and complications, were discussed with the patie nt who agreed to proceed. A timeout was performed to confirm correct patient, procedure, and site. Using sterile technique, the patient was prepped and draped in the usual sterile fashion. After admin istration of local anesthesia using 1% preservative-free lidocaine and using fluoroscopic guidance, a 22-gauge spinal needle was advanced into the subarachnoid space at the L5-S1 level. Subsequently 13 cc of Omnipaque 240 was administered into the thecal sac. The needle was removed and hemostasis was a chieved. Spot fluoroscopic images were obtained. FLUOROSCOPIC TIME: 0.5 minutes. Spot fluoroscopic images demonstrate pedicle screw fixation L4-5 with dorsal laminectomy defects and dorsal lateral bone graft material. Mild lumbar curve convex left. Cholecystectomy clips. Slight ante rolisthesis L4 on L5. Mild disc space narrowing L4-L5 and L5-S1. Slight anterior hypertrophic changes . No acute compression fractures. No instability on flexion-extension. Aortic calcification. Please see CT myelogram report for additional detail. IR/IR myelogram sp lumbar [id number] IMPRESSION: 1. Uncomplicated lumbar myelogram. 2. Pedicle screw fixation L4-5 with dorsolateral bone graft material and laquita ectomy defects. 3. No instability on flexion-extension. Slight anterolisthesis L4 on L5. 4. Mild disc space narrowing L4-L5 and L5-S1.
[2021-10-07] MEDS: iohexol 240 mg/mL 50 mL Btl INTRATHECA (09:41)
== END 2021-10-07 08:40 | disposition home or self-care (01) ==
PROVIDERS: PCP Nurse Practitioner Family; Visit Provider Orthopaedic Surgery
DX: M47.816 Spondylosis without myelopathy or radiculopathy, lumbar region (principal); M47.817 Spondylosis without myelopathy or radiculopathy, lumbosacral region; M51.26 Other intervertebral disc displacement, lumbar region; M51.27 Other intervertebral disc displacement, lumbosacral region
CPT/HCPCS: 62304; 72120; 72132; 85610; Q9966

== ENCOUNTER → 2021-10-16 12:25 | Outpatient (BNVA) | payer MEDICAID, SELFPAY | PROVIDERS: PCP Nurse Practitioner Family; Referring Provider Orthopaedic Surgery; Visit Provider Anesthesiology Pain Medicine | DX: M47.816 Spondylosis without myelopathy or radiculopathy, lumbar region (principal); M48.061 Spinal stenosis, lumbar region without neurogenic claudication; M54.6 Pain in thoracic spine; F17.200 Nicotine dependence, unspecified, uncomplicated | CPT/HCPCS: 99204 ==

== ENCOUNTER 2021-10-22 11:45 | Outpatient (CLI) | payer MEDICAID, SELFPAY ==
--- NOTE | 2021-10-22 | CT_ITS ---
WS: [id number] CT ABDOMEN PELVIS TECHNIQUE: Contrast-enhanced CT of the abdomen and pelvis with coronal and sagittal reformatted image s. CLINICAL INFORMATION: MID ABDOMEN PAIN COMPARISON: 12 15,017 DLP: 1153.[address] scans at [facility] use at least one of these dose optimization techniques: automated e xposure control; mA and/or kV adjustment per patient size (includes targeted exams where dose is matc hed to clinical indication); or iterative reconstruction. FINDINGS: Hepatomegaly. Enlarged right hepatic lobe. Diffuse fatty infiltration the liver. Normal portal vein a nd splenic vein. Normal GE junction. Normal spleen. Normal pancreatic parenchymal enhancement. Adrena l glands are normal. Normal renal parenchymal enhancement. No hydronephrosis. Heterogeneously enhanci ng prostate enlargement measuring 4.7 CM. Recommend correlation PSA. Normal caliber abdominal aorta. No periaortic lymphadenopathy. No inguinal lymphadenopathy. Sigmoid d iverticulosis. Tiny fat-containing umbilical hernia. Prior postoperative changes pedicle screw fixati on L4-5 with dorsolateral bone graft material. Disc osteophyte complex with moderate central canal st enosis L3-4. Lung bases are well aerated. CT/CT abdomen pelvis w con* [id number] IMPRESSION: 1. Hepatomegaly with diffuse fatty infiltration. Enlarged right hepatic lobe u nchanged from previous. 2. Normal caliber abdominal aorta. 3. No hydronephrosis in either kidney. 4. No abdominal or pelvic lymphadenopathy. 5. Enlarged heterogeneously enhancing prostate measuring 4.9 cm progressed com pared to 2017. Recommend correlation PSA. 6. Tiny fat-containing umbilical hernia.
[2021-10-22] MEDS: iohexol 300 mg/mL 100 mL Btl IV (13:50)
[2021-10-22] MEDS: iohexol 300 mg/mL 50 mL Btl PO (13:50)
== END 2021-10-22 11:46 | disposition home or self-care (01) ==
PROVIDERS: PCP Nurse Practitioner Family; Visit Provider Internal Medicine Medical Oncology
DX: I26.99 Other pulmonary embolism without acute cor pulmonale (principal); R10.9 Unspecified abdominal pain; R16.0 Hepatomegaly, not elsewhere classified; K76.0 Fatty (change of) liver, not elsewhere classified; N40.0 Benign prostatic hyperplasia without lower urinary tract symptoms; K42.9 Umbilical hernia without obstruction or gangrene
CPT/HCPCS: 74177; Q9967

== ENCOUNTER → 2021-11-19 13:25 | Outpatient (BNVA) | payer MEDICAID, SELFPAY | PROVIDERS: PCP Nurse Practitioner Family; Visit Provider Anesthesiology Pain Medicine | DX: M47.816 Spondylosis without myelopathy or radiculopathy, lumbar region (principal) | CPT/HCPCS: 64493; 64494; 64495; J3490 ==

== ENCOUNTER 2021-11-24 20:00 | Outpatient (CLI) | payer MEDICAID, SELFPAY | END 2021-11-24 20:01 | disposition home or self-care (01) | LOC: SLEEP 11-25 05:47 | PROVIDERS: PCP Nurse Practitioner Family; Visit Provider Nurse Practitioner Family | DX: G47.33 Obstructive sleep apnea (adult) (pediatric) (principal) | CPT/HCPCS: 95811 ==

== ENCOUNTER → 2021-12-04 10:14 | Outpatient (BNVA) | payer MEDICAID, SELFPAY | PROVIDERS: PCP Nurse Practitioner Family; Visit Provider Anesthesiology Pain Medicine | DX: M47.816 Spondylosis without myelopathy or radiculopathy, lumbar region (principal); M48.061 Spinal stenosis, lumbar region without neurogenic claudication; F17.210 Nicotine dependence, cigarettes, uncomplicated | CPT/HCPCS: 99214 ==

== ENCOUNTER 2021-12-23 13:06 | Emergency (ER) | payer MEDICAID, SELFPAY ==
[2021-12-23 13:10] VITALS: BP 177/98; PULSE 101; RESP 20; TEMP 36.5; O2SAT 96; BMI 34.4
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
[2021-12-23 13:26] VITALS: BP 177/98; PULSE 101; RESP 18; O2SAT 96
[2021-12-23] MEDS: orphenadrine 30 mg/mL Inj 2 mL 60 MG IM (13:40)
[2021-12-23] MEDS: ketorolac 60 mg/2 mL INJ IM (13:42)
[2021-12-23 13:45] VITALS: RESP 18
[2021-12-23] MEDS: morphine 4 mg/mL SDV 1 mL IM (13:45)
[2021-12-23] MEDS: dexamethasone 10 mg/mL INJ 8 MG IM (13:47)
[2021-12-23 14:16] VITALS: RESP 16; O2SAT 96
[2021-12-23 14:41] VITALS: RESP 16
[2021-12-23] MEDS: HYDROmorphone 1 mg/mL INJ 1 mL SUBCUT (14:41)
[2021-12-23 15:08] VITALS: RESP 18; O2SAT 96
== END 2021-12-23 15:25 | disposition home or self-care (01) ==
PROVIDERS: Emergency Provider Physician Assistant; PCP Nurse Practitioner Family
DX: G89.29 Other chronic pain (principal); M54.50 Low back pain, unspecified; Z79.01 Long term (current) use of anticoagulants; Z79.4 Long term (current) use of insulin; E11.40 Type 2 diabetes mellitus with diabetic neuropathy, unspecified; I10 Essential (primary) hypertension; F17.210 Nicotine dependence, cigarettes, uncomplicated
CPT/HCPCS: 96372; 99283; J1100; J1170; J1885; J2270; J2360

== ENCOUNTER 2021-12-25 12:25 | Outpatient (CLI) | payer MEDICAID, SELFPAY ==
[2021-12-25 12:55] LABS: Basophils # 0.1 10^3/uL (0.0-0.1); Basophils % 0.3 %; Eosinophils % 0.1 %; Hematocrit 54.3 % (42.0-52.0); Hemoglobin 17.7 g/dL (11.7-16.6); Lymphocytes # 2.3 10^3/uL (0.8-4.8); Lymphocytes % 13.7 %; Mean Corpuscular HGB Conc 32.6 g/dL (30.0-36.0); Mean Corpuscular Hemoglobin 28.3 pg (28.0-34.0); Mean Corpuscular Volume 86.9 fl (80-94); Mean Platelet Volume 10.2 fL (7.4-10.4); Monocytes # 0.8 10^3/uL (0.2-0.9); Neutrophils # 13.43 10^3/uL (1.8-7.7); Neutrophils % 80.5 %; Nucleated Red Blood Cells % 0 %; Platelet Count 260 10^3/cmm (130-400); Red Blood Count 6.25 10^6/uL (4.1-5.3); White Blood Count 16.7 10^3/uL (4.0-10.0)
--- NOTE | 2021-12-27 11:03 | ONC FU_ITS ---
Dr. Herbert Patient Follow-Up Note Patient: Wilver Boss Unit #: [id number]: 1960 Dicatated By: Jamshid Herbert M.D.Date of Visit:Dec 25, 2021 Onc Med Follow-up/Prog Note Chief Complaint: Polycythemia/pulmonary emboli. History of Present Illness: This is a 60-year-old man with secondary polycythemia. In March 2021 he was found to have bilateral pulmonary emboli by CT pulmonary angiogram. He had initially been seen here by Dr. Campo in March 2012. His hemoglobin was elevated in the range of 18 g. A JAK2 gene mutation study was negative. He had been smoking a pack to pack and half of cigarettes daily for 30 years. 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 He was last seen by Dr. Campo in July 2013. At that point he had stopped smoking. He subsequently was able to stop his phlebotomies. On a recent follow-up visit with Trang Holden he was again noted to have significantly elevated hemoglobin/hematocrit levels at 19.0 g and 56.8% respectively. His white blood cell count was slightly elevated at 11,000. His platelet count was normal at 263,000. I had seen him initially on 09/18/2020. He complained of feeling tired and rundown. He had started smoking again about 4 weeks earlier, attributed to stress. His CBC showed significantly elevated hemoglobin at 18.7 g with hematocrit 56.7%, and he was phlebotomized. At that time I also opted to repeat his molecular studies, mainly because his white blood cell count was also mildly elevated. Those were again negative. He was then phlebotomized again the following month with his hemoglobin remaining elevated at 18.1 g and hematocrit 55.8%. His subsequent monthly CBCs showed just mildly elevated hematocrit levels in the range of 51 to 52%. His other medical illnesses include hypertension, hyperlipidemia, type 2 diabetes, hypothyroidism, peripheral neuropathy, degenerative arthritis/degenerative disease of the spine, and chronic anxiety. INTERIM HISTORY: At his follow-up visit on 02/20/2021 he complained of being very worn out and tired and he also reported some shortness of breath with activity. His oxygen saturation was a little low at 94%. Given the extent of his fatigue, I had recommended further evaluation with CT pulmonary angiogram. For some reason he wanted to put that off, and the study was not done until 03/19/2021. However, it showed central bilateral main pulmonary artery emboli with extension into the proximal segmental branches and with minimal extension into the right lower lobe subsegmental artery. There were no acute pulmonary infiltrates. There was mild left ventricular hypertrophy. He began on anticoagulation with apixaban. His subsequent venous Doppler showed no evidence for DVT in the bilateral lower extremities. During follow-up he continued to have significant fatigue. His repeat CT pulmonary angiogram on 05/26/2021 showed resolution of the pulmonary emboli. A slightly prominent right hilar lymph node appeared stable measuring 8 to 9 mm. As of his follow-up visit on 09/23/2021 he appeared stable clinically. He continued anticoagulation with apixaban 5 mg twice daily. He is seen for a follow-up visit. His main complaint is that he has been having severe back pain. He has had his back recently when out on him just while he was sitting at the table. He is having pain across the middle of his back and downward. His activity is very limited, as it hurts to move. ECOG score is 2. Appetite is so-so. He has had recent fever with chills and sweating, and he had antibiotic and steroid therapy for pneumonia. He currently is not having cough, and he says his breathing is getting better. He is not having chest pain. He has no GI or complaints. He also has pain in both knees. He does not complain of headache. He has numbness in his feet. Medications: Cyclobenzaprine HCl 1 Tablet (of 10 mg) Oral t.i.d., Eliquis 1 Tablet (of 5 mg) Oral b.i.d., Euthyrox 1 Tablet (of 50 mcg) Oral daily, glyBURIDE Micronized Tablet Oral daily, HYDROcodone-Acetaminophen 1 Tablet (of 5-325 mg) Oral q 6 hours PRN, Ibuprofen 1 Tablet (of 800 mg) Oral q 8 hours PRN, Losartan Potassium 1 Tablet (of 50 mg) Oral daily, methylPREDNISolone (4 mg) Tablet Oral Take as Directed Allergies: No Known Allergies. Vital Signs: Performed on Dec 25, 2021 14:48 Height - 70.00 in BP - 172/107 mm(hg) (HIGH) Performed on Dec 25, 2021 14:48 Height - 70.00 in Weight - 241.8 lbs (LOW) BSA - 2.26 sq.m BMI - 34.69 (HIGH) Temperature - 97.0 F (LOW) Pulse - 99 /min Respiration - 18 /min BP - 180/92 mm(hg) (HIGH) O2 Sat - 96 % Pain - 8 Fatigue - 8 Physical Examination: Constitutional - He appears somewhat weak generally, and he has limited mobility, Eyes - Sclerae nonicteric. Conjunctivae clear, ENMT - No lesions noted in the oral cavity, Hematologic/Lymphatic - No cervical, clavicular, or axillary adenopathy, Respiratory - Lungs sound clear with diminished air movement bilaterally, Cardiovascular - Heart rhythm is regular. There is no murmur, gallop, or rub noted, Abdomen - Soft. Liver and spleen are not enlarged. There is no abdominal mass or ascites noted and there is no inguinal adenopathy, Extremities - There are venous stasis changes bilaterally. There is no edema, Neurologic - No focal neurologic deficits noted. Lab/Imaging: Test performed on Dec 25, 2021 12:40 WBC 16.7 10 3/uL RBC 6.25 10 6/uL HGB 17.7 g/dL HCT 54.3 % MCV 86.9 fl MCH 28.3 pg MCHC 32.6 g/dL RDW 16.0 % Platelet Count 260 10 3/cmm MPV 10.2 fL Neutrophils 13.43 10 3/uL Lymphocytes 2.3 10 3/uL Monocytes 0.8 10 3/uL Eosinophils 0.0 10 3/uL Basophils 0.1 10 3/uL Neutrophil % 80.5 % Lymphocyte % 13.7 % Monocyte % 5.0 % Eosinophil % 0.1 % Basophils % 0.3 % NRBC % 0 % Problem List: 1. 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 2. He had CT evidence of major pulmonary emboli by CT pulmonary angiogram on 03/19/2021. He is on anticoagulation with apixaban. 3. Hypertension. 4. Hyperlipidemia. 5. Type 2 diabetes. 6. Peripheral neuropathy. 7. Hypothyroidism. 8. Degenerative arthritis/degenerative disease of the spine. 9. Anxiety/depression. Problems Addressed with this Encounter and Plan: 1. 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 Polycythemia rubra vera, though, was not completely excluded, particularly in view of the fact that he also has a slightly elevated white blood cell count. However, his repeat molecular analysis in September 2020 was again negative. At that time was phlebotomized with his hematocrit significantly elevated at 56.7 % and was phlebotomized again in October 2020 with his hematocrit still high at 55.8%. He did have some symptomatic improvement with the phlebotomies, but it was not dramatic. During subsequent follow-up his monthly hemoglobin/hematocrit levels have remained mildly elevated. He continues expectant management. He will be scheduled for a followup visit in [address] pulmonary angiogram on 03/19/2021 showed major pulmonary emboli bilaterally. He began on anticoagulation with apixaban. He will continue the apixaban at 5 mg twice daily. During follow-up he has continued to have fatigue and limited activity tolerance. His repeat CT pulmonary on 05/26/2021 showed resolution of the pulmonary emboli. He continues anticoagulation with apixaban 5 mg twice daily. Signed By: Jamshid Herbert M.D. <<Signature on File>>
== END 2021-12-25 12:26 | disposition home or self-care (01) ==
PROVIDERS: PCP Nurse Practitioner Family; Visit Provider Internal Medicine Medical Oncology
DX: D75.1 Secondary polycythemia (principal); F17.210 Nicotine dependence, cigarettes, uncomplicated; I10 Essential (primary) hypertension; E78.5 Hyperlipidemia, unspecified; E11.9 Type 2 diabetes mellitus without complications; E03.9 Hypothyroidism, unspecified; M47.9 Spondylosis, unspecified; F41.9 Anxiety disorder, unspecified; F32.A Depression, unspecified; Z79.01 Long term (current) use of anticoagulants; Z79.899 Other long term (current) drug therapy; Z86.711 Personal history of pulmonary embolism
CPT/HCPCS: 36415; 85025; 99214

== ENCOUNTER → 2021-12-31 13:44 | Outpatient (BNVA) | payer MEDICAID, SELFPAY | PROVIDERS: PCP Nurse Practitioner Family; Visit Provider Anesthesiology Pain Medicine | DX: E11.40 Type 2 diabetes mellitus with diabetic neuropathy, unspecified (principal); F17.210 Nicotine dependence, cigarettes, uncomplicated; M47.816 Spondylosis without myelopathy or radiculopathy, lumbar region | CPT/HCPCS: 36416; 64635; 64636; 82962 ==

== ENCOUNTER → 2022-01-06 12:40 | Outpatient (BNVA) | payer MEDICAID, SELFPAY | PROVIDERS: PCP Nurse Practitioner Family; Visit Provider Anesthesiology Pain Medicine | DX: Z01.812 Encounter for preprocedural laboratory examination (principal); E11.40 Type 2 diabetes mellitus with diabetic neuropathy, unspecified; Z79.4 Long term (current) use of insulin; F17.210 Nicotine dependence, cigarettes, uncomplicated; M47.816 Spondylosis without myelopathy or radiculopathy, lumbar region | CPT/HCPCS: 36416; 64635; 64636; 82962 ==

== ENCOUNTER → 2022-01-20 08:24 | Outpatient (BNVA) | payer MEDICAID, SELFPAY | PROVIDERS: PCP Nurse Practitioner Family; Visit Provider Anesthesiology Pain Medicine | DX: M47.816 Spondylosis without myelopathy or radiculopathy, lumbar region (principal); M48.061 Spinal stenosis, lumbar region without neurogenic claudication; Z79.891 Long term (current) use of opiate analgesic; F17.210 Nicotine dependence, cigarettes, uncomplicated | CPT/HCPCS: 99214 ==

== ENCOUNTER → 2022-02-04 13:27 | Outpatient (BNVA) | payer MEDICAID, SELFPAY | PROVIDERS: PCP Nurse Practitioner Family; Visit Provider Anesthesiology Pain Medicine | DX: E11.40 Type 2 diabetes mellitus with diabetic neuropathy, unspecified (principal); Z79.4 Long term (current) use of insulin; F17.210 Nicotine dependence, cigarettes, uncomplicated; M54.16 Radiculopathy, lumbar region | CPT/HCPCS: 62323 ==

== ENCOUNTER → 2022-02-05 09:47 | Outpatient (BNVA) | payer MEDICAID, SELFPAY | PROVIDERS: PCP Nurse Practitioner Family; Visit Provider Anesthesiology Pain Medicine | DX: M54.16 Radiculopathy, lumbar region (principal); M54.9 Dorsalgia, unspecified; E11.40 Type 2 diabetes mellitus with diabetic neuropathy, unspecified; Z79.4 Long term (current) use of insulin; F17.210 Nicotine dependence, cigarettes, uncomplicated | CPT/HCPCS: 36416; 82962 ==

== ENCOUNTER → 2022-02-25 08:54 | Outpatient (BNVA) | payer MEDICAID, SELFPAY | PROVIDERS: PCP Nurse Practitioner Family; Visit Provider Anesthesiology Pain Medicine | DX: M47.816 Spondylosis without myelopathy or radiculopathy, lumbar region (principal); M48.061 Spinal stenosis, lumbar region without neurogenic claudication; F17.210 Nicotine dependence, cigarettes, uncomplicated | CPT/HCPCS: 99214 ==

== ENCOUNTER 2022-04-07 10:40 | Outpatient (CLI) | payer MEDICAID, SELFPAY ==
--- NOTE | 2022-04-07 10:47 | XRR_ITS ---
PROCEDURE INFORMATION: Exam: XR Right Hip Exam date and time: 04/07/2022 11:11 AM Age: 62 years old Clinical indication: Hip pain; Right hip; Additional info: R hip pain, chronic worsening. TECHNIQUE: Imaging protocol: Radiologic exam of the Right hip. Views: 1 view hip with pelvis when performed. Total images: 2 COMPARISON: CT abdomen pelvis w con* [id number] 10/22/2021 1:20 PM FINDINGS: Bones/joints: Unremarkable. No acute fracture. Soft tissues: Unremarkable. XR/XR hip RT 2-3V wo/w pel* [id number] IMPRESSION: No acute findings.
== END 2022-04-07 10:41 | disposition home or self-care (01) ==
PROVIDERS: Visit Provider Family Medicine
DX: M25.551 Pain in right hip (principal); M54.16 Radiculopathy, lumbar region
CPT/HCPCS: 73502; 80053; 80061; 83036; 84153; 85025

== ENCOUNTER 2022-04-22 10:53 | Oncology outpatient (recurring) (ONCR) | payer MEDICAID, SELFPAY ==
[2022-04-22 11:14] LABS: Basophils # 0.1 10^3/uL (0.0-0.1); Mean Corpuscular HGB Conc 33.2 g/dL (30.0-36.0); Nucleated Red Blood Cells % 0 %
[2022-04-22 11:18] LABS: Basophils % 0.8 %; Eosinophils # 0.2 10^3/uL (0.0-0.8); Eosinophils % 2.1 %; Hematocrit 54.9 % (42.0-52.0); Hemoglobin 18.2 g/dL (11.7-16.6); Lymphocytes # 3.6 10^3/uL (0.8-4.8); Lymphocytes % 31.4 %; Mean Corpuscular Hemoglobin 29.7 pg (28.0-34.0); Mean Corpuscular Volume 89.7 fl (80-94); Mean Platelet Volume 9.8 fL (7.4-10.4); Monocytes # 0.7 10^3/uL (0.2-0.9); Neutrophils # 6.76 10^3/uL (1.8-7.7); Neutrophils % 59.3 %; Platelet Count 207 10^3/cmm (130-400); Red Blood Count 6.12 10^6/uL (4.1-5.3); Red Cell Distribution Width 14.1 % (12.1-15.1); White Blood Count 11.4 10^3/uL (4.0-10.0)
[2022-04-22 12:07] LABS: Alanine Aminotransferase 28 U/L (0-41); Albumin Level 4.3 g/dL (3.5-5.2); Alkaline Phosphatase 92 IU/L (40-130); Anion Gap 15.2 (5-19); Aspartate Amino Transferase 20 U/L (0-40); Blood Urea Nitrogen 8 mg/dL (8-23); Calcium 9.1 mg/dL (8.5-10.5); Carbon Dioxide 27 mmol/L (22-29); Chloride 100 mmol/L (98-107); Glomerular Filtration Rate 137.4 mL/min (90-130); Glucose 156 mg/dL (65-115); Osmolality Calculated 288 mOsm/kg (285-295); Potassium 4.2 mmol/L (3.5-5.1); Sodium 138 mmol/L (136-145); Total Bilirubin 0.5 mg/dL (0.15-1.2); Total Protein 7.3 g/dL (6.6-8.7)
== END 2022-05-03 23:59 | disposition home or self-care (01) ==
PROVIDERS: Internal Medicine Medical Oncology; PCP Family Medicine; Visit Provider Nurse Practitioner Family
DX: D75.1 Secondary polycythemia (principal); I26.99 Other pulmonary embolism without acute cor pulmonale; Z79.01 Long term (current) use of anticoagulants; Z79.899 Other long term (current) drug therapy
CPT/HCPCS: 80053; 85025; 99214

== ENCOUNTER → 2022-05-28 09:45 | Outpatient (BNVA) | payer MEDICAID, SELFPAY | PROVIDERS: PCP Family Medicine; Visit Provider Anesthesiology Pain Medicine | DX: F17.210 Nicotine dependence, cigarettes, uncomplicated (principal); M47.816 Spondylosis without myelopathy or radiculopathy, lumbar region; M48.061 Spinal stenosis, lumbar region without neurogenic claudication | CPT/HCPCS: 99214 ==

== ENCOUNTER → 2022-06-15 12:50 | Outpatient (BNVA) | payer MEDICAID, SELFPAY | PROVIDERS: PCP Family Medicine; Visit Provider Anesthesiology Pain Medicine | DX: M54.16 Radiculopathy, lumbar region (principal); F17.210 Nicotine dependence, cigarettes, uncomplicated | CPT/HCPCS: 62323; J1040; J3490 ==

== ENCOUNTER → 2022-07-13 10:50 | Outpatient (BNVA) | payer MEDICAID, SELFPAY | PROVIDERS: PCP Family Medicine; Visit Provider Anesthesiology Pain Medicine | DX: M47.816 Spondylosis without myelopathy or radiculopathy, lumbar region (principal); M48.061 Spinal stenosis, lumbar region without neurogenic claudication; M17.12 Unilateral primary osteoarthritis, left knee; F17.210 Nicotine dependence, cigarettes, uncomplicated | CPT/HCPCS: 99214 ==

== ENCOUNTER 2022-07-23 11:43 | Oncology outpatient (recurring) (ONCR) | payer MEDICAID, SELFPAY ==
[2022-07-23 12:05] LABS: Basophils # 0.1 10^3/uL (0.0-0.1); Basophils % 1.5 %; Eosinophils # 0.2 10^3/uL (0.0-0.8); Hematocrit 54.1 % (42.0-52.0); Lymphocytes % 33.1 %; Mean Corpuscular HGB Conc 33.3 g/dL (30.0-36.0); Mean Corpuscular Hemoglobin 29.9 pg (28.0-34.0); Mean Corpuscular Volume 89.9 fl (80-94); Monocytes # 0.5 10^3/uL (0.2-0.9); Monocytes % 5.9 %; Neutrophils % 57.2 %; Nucleated Red Blood Cells % 0 %; Platelet Count 215 10^3/cmm (130-400); Red Blood Count 6.02 10^6/uL (4.1-5.3); Red Cell Distribution Width 13.8 % (12.1-15.1); White Blood Count 8.9 10^3/uL (4.0-10.0)
[2022-07-23 12:28] LABS: Albumin Level 4.2 g/dL (3.5-5.2); Alkaline Phosphatase 86 U/L (40-130)
[2022-07-23 12:43] LABS: Alanine Aminotransferase 31 U/L (0-41); Anion Gap 16.5 (5-19); Aspartate Amino Transferase 20 U/L (0-40); Blood Urea Nitrogen 14 mg/dL (8-23); Calcium 9.3 mg/dL (8.5-10.5); Carbon Dioxide 25 mmol/L (22-29); Chloride 99 mmol/L (98-107); Globulin 3.2 g/dL (1.3-4.6); Glucose 205 mg/dL (65-115); Osmolality Calculated 288 mOsm/kg (285-295); Potassium 4.5 mmol/L (3.5-5.1); Sodium 136 mmol/L (136-145); Total Bilirubin 0.4 mg/dL (0.15-1.2); Total Protein 7.4 g/dL (6.6-8.7)
[2022-07-23 14:27] VITALS: BP 128/74; PULSE 80; O2SAT 94
== END 2022-08-03 23:59 | disposition home or self-care (01) ==
PROVIDERS: PCP Family Medicine; Visit Provider Nurse Practitioner Family
DX: D75.1 Secondary polycythemia (principal); Z79.01 Long term (current) use of anticoagulants; Z79.899 Other long term (current) drug therapy; F17.210 Nicotine dependence, cigarettes, uncomplicated; Z86.711 Personal history of pulmonary embolism
CPT/HCPCS: 36415; 80053; 85025; 99195; 99214

== ENCOUNTER → 2022-07-29 09:58 | Outpatient (BNVA) | payer MEDICAID, SELFPAY | PROVIDERS: PCP Family Medicine; Visit Provider Anesthesiology Pain Medicine | DX: M25.562 Pain in left knee (principal); E11.40 Type 2 diabetes mellitus with diabetic neuropathy, unspecified; F17.210 Nicotine dependence, cigarettes, uncomplicated; Z79.4 Long term (current) use of insulin; Z79.84 Long term (current) use of oral hypoglycemic drugs | CPT/HCPCS: 20610; 36416; 82962 ==

== ENCOUNTER → 2022-08-19 15:24 | Outpatient (BNVA) | payer MEDICAID, SELFPAY | PROVIDERS: PCP Family Medicine; Visit Provider Registered Nurse Neonatal Intensive Care | DX: R50.9 Fever, unspecified (principal); R05.9 Cough, unspecified; M79.5 Residual foreign body in soft tissue | CPT/HCPCS: 71046; 87400 ==

== ENCOUNTER 2022-08-25 12:39 | Oncology outpatient (recurring) (ONCR) | payer MEDICAID, SELFPAY ==
[2022-08-25 13:23] VITALS: RESP 18; TEMP 36.6; O2SAT 98
[2022-08-25 13:24] LABS: Basophils # 0.1 10^3/uL (0.0-0.1); Basophils % 0.4 %; Eosinophils # 0.2 10^3/uL (0.0-0.8); Eosinophils % 1.9 %; Hematocrit 52.6 % (42.0-52.0); Hemoglobin 17.7 g/dL (11.7-16.6); Lymphocytes # 3.1 10^3/uL (0.8-4.8); Lymphocytes % 28.2 %; Mean Corpuscular HGB Conc 33.7 g/dL (30.0-36.0); Mean Corpuscular Hemoglobin 30.4 pg (28.0-34.0); Mean Corpuscular Volume 90.4 fl (80-94); Mean Platelet Volume 10.1 fL (7.4-10.4); Monocytes # 0.6 10^3/uL (0.2-0.9); Neutrophils # 7.14 10^3/uL (1.8-7.7); Neutrophils % 64.2 %; Nucleated Red Blood Cells % 0 %; Platelet Count 228 10^3/cmm (130-400); Red Blood Count 5.82 10^6/uL (4.1-5.3); Red Cell Distribution Width 13.7 % (12.1-15.1); White Blood Count 11.1 10^3/uL (4.0-10.0)
[2022-08-25 13:50] VITALS: BP 139/78; PULSE 78; RESP 18; TEMP 36.6; O2SAT 98
== END 2022-09-02 23:59 | disposition home or self-care (01) ==
LOC: ONCMED 12:40
PROVIDERS: PCP Family Medicine; Visit Provider Internal Medicine Medical Oncology
DX: D75.1 Secondary polycythemia (principal)
CPT/HCPCS: 36415; 85025; 99195

== ENCOUNTER → 2022-08-31 10:32 | Outpatient (BNVA) | payer MEDICAID, SELFPAY | PROVIDERS: PCP Family Medicine; Visit Provider Anesthesiology Pain Medicine | DX: M54.16 Radiculopathy, lumbar region (principal); M47.816 Spondylosis without myelopathy or radiculopathy, lumbar region; M48.061 Spinal stenosis, lumbar region without neurogenic claudication; M25.562 Pain in left knee | CPT/HCPCS: 99214 ==

== ENCOUNTER → 2022-09-09 09:36 | Outpatient (BNVA) | payer MEDICAID, SELFPAY | PROVIDERS: PCP Family Medicine; Visit Provider Family Medicine | DX: E03.9 Hypothyroidism, unspecified (principal); I10 Essential (primary) hypertension; E11.8 Type 2 diabetes mellitus with unspecified complications | CPT/HCPCS: 80053; 80061; 83036; 84439; 84443; 85025 ==

== ENCOUNTER 2022-09-17 12:42 | Oncology outpatient (recurring) (ONCR) | payer MEDICAID, SELFPAY ==
[2022-09-17 13:17] LABS: Basophils # 0.1 10^3/uL (0.0-0.1); Basophils % 0.8 %; Eosinophils # 0.2 10^3/uL (0.0-0.8); Eosinophils % 1.8 %; Hematocrit 51.8 % (42.0-52.0); Lymphocytes % 31.3 %; Mean Corpuscular HGB Conc 32.8 g/dL (30.0-36.0); Mean Corpuscular Hemoglobin 29.8 pg (28.0-34.0); Mean Corpuscular Volume 90.7 fl (80-94); Mean Platelet Volume 9.9 fL (7.4-10.4); Monocytes # 0.6 10^3/uL (0.2-0.9); Monocytes % 6.2 %; Neutrophils # 5.79 10^3/uL (1.8-7.7); Neutrophils % 59.7 %; Nucleated Red Blood Cells % 0 %; Platelet Count 254 10^3/cmm (130-400); Red Blood Count 5.71 10^6/uL (4.1-5.3); Red Cell Distribution Width 13.5 % (12.1-15.1); White Blood Count 9.7 10^3/uL (4.0-10.0)
--- NOTE | 2022-09-17 13:43 | PC.NURSE ---
Hemoglobin 17/ Hct 51.8,discussed results with Dr. Herbert. Dr. Herbert stated the patient could decide if phlebotomy helpful with symptoms than take 450ml blood off. But if patient wanted to skip phlebotomy this month he could. After discussing with patient he stated he would wait and not have phlebotomy performed today. Follow up appointment as scheduled. Christine AVINAN, RN, OCN
== END 2022-10-03 23:59 | disposition home or self-care (01) ==
LOC: ONCMED 12:42
PROVIDERS: PCP Family Medicine; Visit Provider Internal Medicine Medical Oncology
DX: D75.1 Secondary polycythemia (principal)
CPT/HCPCS: 85025

== ENCOUNTER 2022-10-15 12:45 | Oncology outpatient (recurring) (ONCR) | payer MEDICAID, SELFPAY ==
[2022-10-15 13:29] VITALS: BP 124/74; PULSE 91; O2SAT 93
[2022-10-15 13:36] LABS: Basophils # 0.1 10^3/uL (0.0-0.1); Basophils % 0.7 %; Eosinophils # 0.2 10^3/uL (0.0-0.8); Eosinophils % 2.1 %; Hematocrit 53.9 % (42.0-52.0); Hemoglobin 17.5 g/dL (11.7-16.6); Lymphocytes # 3.3 10^3/uL (0.8-4.8); Lymphocytes % 29.3 %; Mean Corpuscular HGB Conc 32.5 g/dL (30.0-36.0); Mean Corpuscular Hemoglobin 29.3 pg (28.0-34.0); Mean Corpuscular Volume 90.1 fl (80-94); Mean Platelet Volume 10.2 fL (7.4-10.4); Monocytes # 0.6 10^3/uL (0.2-0.9); Monocytes % 5.1 %; Neutrophils # 7.07 10^3/uL (1.8-7.7); Neutrophils % 62.5 %; Nucleated Red Blood Cells % 0 %; Platelet Count 232 10^3/cmm (130-400); Red Blood Count 5.98 10^6/uL (4.1-5.3); Red Cell Distribution Width 13.3 % (12.1-15.1); White Blood Count 11.3 10^3/uL (4.0-10.0)
== END 2022-11-03 23:59 | disposition home or self-care (01) ==
LOC: ONCMED 12:46
PROVIDERS: PCP Family Medicine; Visit Provider Internal Medicine Medical Oncology
DX: D75.1 Secondary polycythemia (principal)
CPT/HCPCS: 36415; 85025; 99195

== ENCOUNTER → 2023-01-06 11:28 | Outpatient (BNVA) | payer MEDICAID, SELFPAY | PROVIDERS: PCP Family Medicine; Visit Provider Family Medicine | DX: I10 Essential (primary) hypertension (principal); E11.8 Type 2 diabetes mellitus with unspecified complications; E03.9 Hypothyroidism, unspecified; D75.1 Secondary polycythemia; I26.99 Other pulmonary embolism without acute cor pulmonale | CPT/HCPCS: 80048; 83036; 84439; 84443; 85025 ==

== ENCOUNTER → 2023-03-17 10:35 | Outpatient (BNVA) | payer MEDICAID, SELFPAY | PROVIDERS: PCP Family Medicine; Visit Provider Nurse Practitioner Family | DX: L82.0 Inflamed seborrheic keratosis (principal); D22.5 Melanocytic nevi of trunk; L57.8 Other skin changes due to chronic exposure to nonionizing radiation; L82.1 Other seborrheic keratosis | CPT/HCPCS: 11102; 99213 ==

== ENCOUNTER → 2023-05-11 10:08 | Outpatient (BNVA) | payer MEDICAID, SELFPAY | PROVIDERS: PCP Family Medicine; Visit Provider Family Medicine | DX: D75.1 Secondary polycythemia (principal); E03.9 Hypothyroidism, unspecified; I10 Essential (primary) hypertension; Z12.5 Encounter for screening for malignant neoplasm of prostate; E83.52 Hypercalcemia; E11.69 Type 2 diabetes mellitus with other specified complication | CPT/HCPCS: 80053; 80061; 82306; 83036; 84439; 84443; 85025; G0103 ==

== ENCOUNTER → 2023-06-01 12:44 | Outpatient (BNVA) | payer MEDICAID, SELFPAY | PROVIDERS: PCP Family Medicine; Visit Provider Surgery | DX: K59.00 Constipation, unspecified (principal) | CPT/HCPCS: 99203 ==

== ENCOUNTER 2023-06-11 05:47 | Day surgery (SDC) | payer MEDICAID, SELFPAY ==
[2023-06-09 12:33] VITALS: BMI 35.9
[2023-06-11 06:07] VITALS: BP 178/95; PULSE 90; RESP 18; TEMP 36.5; O2SAT 94
[2023-06-11 06:20] LABS: Glucose Point of Care 175 mg/dL (70-110)
[2023-06-11] MEDS: sodium chloride 0.9% 1,000 ML 30 ML IV (06:22)
--- NOTE | 2023-06-11 06:52 | W.PM.OPSUD ---
Surgery/Procedure H&P Update DATE OF PROCEDURE: June 11, 2023 DATE H&P PERFORMED: 06/01/23 H&P UPDATE INFORMATION: I have reviewed H&P completed within last 30 days, I have examined patient prior to procedure and No changes to prior documentation PLANNED PROCEDURE: Operation Date: 06/11/23 07:00 Proposed Procedures p Colonoscopy 19706,Z12.11(Not Applicable) - Trenton Motley, DO
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
[2023-06-11 07:19] VITALS: BP 135/77; PULSE 76; RESP 16; TEMP 36.3; O2SAT 94
[2023-06-11 07:28] VITALS: BP 134/75; PULSE 83; RESP 16; O2SAT 97
--- NOTE | 2023-06-11 07:45 | ANE.PACU2 ---
Inpatient post-anesthesia follow up: Airway intact: Yes Vital signs: Temperature 97.4 F Pulse Rate 83 Respiratory Rate 16 Blood Pressure 134/75 Pulse Oximetry 97 Oxygen Delivery Me thod Room Air Oxygen Flow Rate 4 Fraction of Inspir ed Oxygen Hydration adequate: Yes Nausea and vomiting: No Pain level: 1 Mental status: Baseline
== END 2023-06-11 07:49 | disposition home or self-care (01) ==
PROVIDERS: PCP Family Medicine; Visit Provider Surgery
PROC: 0DJD8ZZ Inspection of Lower Intestinal Tract, Via Natural or Artificial Opening Endoscopic (ICD-10-PCS; CPT 45378; principal; 2023-06-11 07:00)
DX: Z12.11 Encounter for screening for malignant neoplasm of colon (principal); J44.9 Chronic obstructive pulmonary disease, unspecified; I10 Essential (primary) hypertension; K21.9 Gastro-esophageal reflux disease without esophagitis; E11.9 Type 2 diabetes mellitus without complications
CPT/HCPCS: 36416; 45378; 82962; J2704; J7030

== ENCOUNTER → 2023-06-22 11:08 | Outpatient (BNVA) | payer MEDICAID, SELFPAY | PROVIDERS: PCP Family Medicine; Visit Provider Surgery | DX: Z09 Encounter for follow-up examination after completed treatment for conditions other than malignant neoplasm (principal); K59.00 Constipation, unspecified; R14.0 Abdominal distension (gaseous) | CPT/HCPCS: 99213 ==

== ENCOUNTER → 2024-04-11 09:47 | Outpatient (BNVA) | payer MEDICAID, SELFPAY | PROVIDERS: PCP Family Medicine; Visit Provider Family Medicine | DX: R10.9 Unspecified abdominal pain (principal); E03.9 Hypothyroidism, unspecified; R35.0 Frequency of micturition; E53.8 Deficiency of other specified B group vitamins; Z51.81 Encounter for therapeutic drug level monitoring | CPT/HCPCS: 80053; 82607; 84153; 84439; 84443; 85025; 86141 ==

== ENCOUNTER 2024-04-17 14:48 | Outpatient (CLI) | payer MEDICAID, SELFPAY ==
[2024-04-17] MEDS: iohexol 350 mg/mL 500 mL Btl (per mL) PO (15:29)
[2024-04-17] MEDS: iohexol 350 mg/mL 500 mL Btl (per mL) IV (15:52)
--- NOTE | 2024-04-17 16:00 | CT_ITS ---
WS: [id number] CT ABDOMEN AND PELVIS WITH CONTRAST HISTORY: Right mid abdominal mass TECHNIQUE: Imaging performed of the abdomen and pelvis with IV contrast. Single phase imaging of the abdomen. Coronal and sagittal reformats are submitted. All CT scans at [facility] use at [address] one of these dose optimization techniques: automated exposure control; mA and/or kV adjustment per patient size (includes targeted exams where dose is matched to clinical indication); or iterative re construction. IV CONTRAST: Omnipaque 350; 100 mL IV. Oral contrast: Yes. DLP: 656.07 mGy.cm COMPARISON: 10/22/2021 Lower thorax: Small micronodules RIGHT middle lobe unchanged since 10/22/2021. Heart is normal size. S mall hiatal hernia. Liver/biliary system: Normal size liver. Focal fatty sparing along the falciform ligament. Normal por william vein. Gallbladder: Prior cholecystectomy. Normal common bile duct. Pancreas: Normal size pancreas and pancreatic duct. No adjacent inflammation. Spleen: Normal size spleen. No mass or infarct. Adrenal glands: Normal. Right kidney: Mild perinephric stranding. No obstruction or mass. Left kidney: Mild perinephric stranding. No obstruction or mass. Aorta: Mild atherosclerosis with no aneurysm. Lymphadenopathy: None. Free fluid: None. GI tract: Stomach is overly distended. Stomach contains food products but there is no obstructive pat tern. Normal small bowel. No small bowel obstruction. No colon obstruction. Normal appendix. Moderate fecal retention in the distal colon. Abdominal wall: Ventral umbilical hernia contains fat only. Pelvis: No free fluid or adenopathy within the pelvis. Negative urinary bladder. Normal size prostate with mild heterogeneity. Inguinal canals are patent bilaterally containing fat only. Bones: Prior posterior lumbar fusion at L4-5. CT/CT abdomen pelvis w con* [id number] IMPRESSION: 1. No ventral abdominal wall mass identified. 2. The stomach is overly distended with food products and this may represent a component of gastroparesis. This may be the mass that is palpated on physical exam. No obstructing mass identified. There is very minimal circumferential thi ckening at the level of the duodenal bulb. No discrete mass. 3. Prior cholecystectomy. 4. No GI tract obstruction.
== END 2024-04-17 14:49 | disposition home or self-care (01) ==
LOC: RAD 14:48
PROVIDERS: PCP Family Medicine; Visit Provider Family Medicine
DX: R19.00 Intra-abdominal and pelvic swelling, mass and lump, unspecified site (principal); K56.41 Fecal impaction; Z90.49 Acquired absence of other specified parts of digestive tract; K44.9 Diaphragmatic hernia without obstruction or gangrene
CPT/HCPCS: 74177; Q9967

== ENCOUNTER 2024-06-07 07:22 | Oncology outpatient (recurring) (ONCR) | payer MEDICAID, SELFPAY ==
[2024-06-07 07:52] LABS: Basophils # 0.1 10^3/uL (0.0-0.1); Eosinophils # 0.2 10^3/uL (0.0-0.8); Hematocrit 57.4 % (37-53); Lymphocytes # 2.6 10^3/uL (0.8-4.8); Lymphocytes % 30.1 %; Mean Corpuscular HGB Conc 33.8 g/dL (30-55); Mean Corpuscular Hemoglobin 30.6 pg (27-33); Mean Corpuscular Volume 90.4 fl (82-101); Mean Platelet Volume 9.9 fL (7.4-10.4); Monocytes # 0.7 10^3/uL (0.2-0.9); Monocytes % 8.4 %; Neutrophils # 5.01 10^3/uL (1.8-7.7); Neutrophils % 58.4 %; Nucleated Red Blood Cells % 0 %; Platelet Count 170 10^3/cmm (157-399); Red Blood Count 6.35 10^6/uL (3.85-5.65); Red Cell Distribution Width 14.1 % (12.1-15.1); White Blood Count 8.58 10^3/uL (3.29-11.43)
[2024-06-07 08:09] LABS: Alanine Aminotransferase 33 U/L (0-41); Albumin Level 4.2 g/dL (3.5-5.2); Alkaline Phosphatase 75 U/L (40-130); Blood Urea Nitrogen 19 mg/dL (8-23); Calcium 8.7 mg/dL (8.5-10.5); Carbon Dioxide 24 mmol/L (22-29); Chloride 100 mmol/L (98-107); Creatinine Clr Calc Pharmacy 147.9602; Globulin 2.8 g/dL (1.3-4.6); Glomerular Filtration Rate 136.5 mL/min (90-130); Glucose 147 mg/dL (65-115); Osmolality Calculated 289 mOsm/kg (285-295); Sodium 137 mmol/L (136-145); Total Bilirubin 0.6 mg/dL (0.15-1.2)
[2024-06-07 08:12] LABS: Aspartate Amino Transferase 28 U/L (0-40)
[2024-06-07 08:40] VITALS: BP 132/74; PULSE 82; RESP 16; TEMP 36; O2SAT 92
[2024-06-07 09:04] VITALS: BP 117/70; PULSE 88; RESP 16; TEMP 36.4; O2SAT 92
== END 2024-07-03 23:59 | disposition home or self-care (01) ==
PROVIDERS: Nurse Practitioner Family; PCP Family Medicine; Visit Provider Internal Medicine Medical Oncology
DX: D75.1 Secondary polycythemia (principal); I26.99 Other pulmonary embolism without acute cor pulmonale
CPT/HCPCS: 36415; 80053; 85025; 99195; 99214

== ENCOUNTER 2024-07-05 13:11 | Oncology outpatient (recurring) (ONCR) | payer MEDICAID, SELFPAY ==
[2024-07-05 13:34] LABS: Basophils # 0.1 10^3/uL (0.0-0.1); Basophils % 1.3 %; Eosinophils # 0.1 10^3/uL (0.0-0.8); Eosinophils % 1.5 %; Lymphocytes % 27.8 %; Mean Corpuscular HGB Conc 34.7 g/dL (30-55); Mean Corpuscular Hemoglobin 31.3 pg (27-33); Mean Corpuscular Volume 90.2 fl (82-101); Mean Platelet Volume 9.6 fL (7.4-10.4); Monocytes # 0.7 10^3/uL (0.2-0.9); Monocytes % 9.3 %; Neutrophils # 4.28 10^3/uL (1.8-7.7); Nucleated Red Blood Cells % 0 %; Platelet Count 183 10^3/cmm (157-399); Red Blood Count 6.43 10^6/uL (3.85-5.65); Red Cell Distribution Width 14.1 % (12.1-15.1); White Blood Count 7.13 10^3/uL (3.29-11.43)
== END 2024-08-03 23:59 | disposition home or self-care (01) ==
LOC: ONCMED 13:11
PROVIDERS: Nurse Practitioner Family; PCP Family Medicine; Visit Provider Internal Medicine Hematology & Oncology
DX: D75.1 Secondary polycythemia (principal)
CPT/HCPCS: 36415; 85025; 99195

== ENCOUNTER → 2024-08-21 08:06 | Outpatient (BNVA) | payer MEDICAID, SELFPAY | PROVIDERS: PCP Family Medicine; Visit Provider Family Medicine | DX: E11.9 Type 2 diabetes mellitus without complications (principal); Z51.81 Encounter for therapeutic drug level monitoring | CPT/HCPCS: 80053; 83036; 85025 ==

== ENCOUNTER → 2024-08-23 08:39 | Outpatient (BNVA) | payer MEDICAID, SELFPAY | PROVIDERS: PCP Family Medicine; Visit Provider Family Medicine | DX: D75.1 Secondary polycythemia (principal) | CPT/HCPCS: 86900 ==

== ENCOUNTER 2024-09-06 11:20 | Oncology outpatient (recurring) (ONCR) | payer MEDICAID, SELFPAY ==
[2024-09-06 11:37] LABS: Basophils % 0.5 %; Eosinophils # 0.1 10^3/uL (0.0-0.8); Eosinophils % 1.4 %; Hematocrit 55.7 % (37-53); Lymphocytes # 2.3 10^3/uL (0.8-4.8); Lymphocytes % 29.8 %; Mean Corpuscular Volume 93.8 fl (82-101); Mean Platelet Volume 9.7 fL (7.4-10.4); Monocytes # 0.5 10^3/uL (0.2-0.9); Monocytes % 5.9 %; Neutrophils # 4.76 10^3/uL (1.8-7.7); Neutrophils % 62.1 %; Nucleated Red Blood Cells % 0 %; Platelet Count 181 10^3/cmm (157-399); Red Blood Count 5.94 10^6/uL (3.85-5.65); Red Cell Distribution Width 13.8 % (12.1-15.1); White Blood Count 7.66 10^3/uL (3.29-11.43)
[2024-09-06 12:49] LABS: Alanine Aminotransferase 22 U/L (0-41); Albumin Level 4.4 g/dL (3.5-5.2); Alkaline Phosphatase 86 U/L (40-130); Aspartate Amino Transferase 22 U/L (0-40); Blood Urea Nitrogen 15 mg/dL (8-23); Carbon Dioxide 26 mmol/L (22-29); Chloride 98 mmol/L (98-107); Globulin 2.9 g/dL (1.3-4.6); Glomerular Filtration Rate 136.5 mL/min (90-130); Glucose 109 mg/dL (65-115); Osmolality Calculated 285 mOsm/kg (285-295); Sodium 137 mmol/L (136-145); Total Bilirubin 0.6 mg/dL (0.15-1.2); Total Protein 7.3 g/dL (6.6-8.7)
== END 2024-10-03 23:59 | disposition home or self-care (01) ==
PROVIDERS: Nurse Practitioner Family; PCP Family Medicine; Visit Provider Internal Medicine
DX: D75.1 Secondary polycythemia (principal); I26.99 Other pulmonary embolism without acute cor pulmonale
CPT/HCPCS: 36415; 80053; 85025; 99214

== ENCOUNTER 2024-09-06 21:47 | Emergency (ER) | payer MEDICAID, SELFPAY ==
[2024-09-06 21:48] VITALS: BP 135/75; PULSE 85; RESP 18; TEMP 36.6; O2SAT 95; BMI 30.7
--- NOTE | 2024-09-06 22:54 | ECG_ITS ---
[facility] Date: 2024-09-06 Pat Name: Wilver Boss Department: Room: Gender: Male Bar Helper: : 1960 Requested By: Fani Ryan Order Number: [id number] Crenshaw MD: Daniel Rubio M.D. Measurements Intervals [place] Rate: 79 P: 71 VA: 237 QRS: 82 QRSD: 109 T: 68 QT: 374 QTc: 429 Interpretive Statements SINUS RHYTHM WITH FIRST DEGREE AV BLOCK LOW QRS VOLTAGE IN PRECORDIAL LEADS [QRS DEFLECTION < 1.0 mV IN CHEST LEADS] Compared to ECG 03/05/2018 20:20:33 First degree AV block now present Low QRS voltage now present Electronically Signed On 09-07-2024 14:41:59 HYBRID TECHNOLOGIST by Daniel Rubio M.D. [email or web address]
--- NOTE | 2024-09-06 22:54 | XRR_ITS ---
PROCEDURE INFORMATION: Exam: XR Chest Exam date and time: 09/06/2024 11:36 PM Age: 64 years old Clinical indication: Shortness of breath TECHNIQUE: Imaging protocol: Radiologic exam of the chest. Views: 1 view. COMPARISON: CR XR chest 2V* [id number] 08/19/2022 3:32 PM FINDINGS: Lungs: Calcified granulomas in the left mid lung zone. No consolidation. Pleural spaces: Unremarkable. No pleural effusion. No pneumothorax. Heart/Mediastinum: Unremarkable. No cardiomegaly. Bones/joints: Mild degenerative disease of bilateral acromioclavicular joints. There are mild degenerative changes of the glenohumeral joint. XR/XR chest 1V portable [id number] IMPRESSION: No acute cardiopulmonary process.
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
[2024-09-06 23:15] LABS: Basophils % 0.4 %; Eosinophils # 0.1 10^3/uL (0.0-0.8); Eosinophils % 0.7 %; Hematocrit 51.5 % (37-53); Lymphocytes # 1.3 10^3/uL (0.8-4.8); Lymphocytes % 12.8 %; Mean Corpuscular HGB Conc 33.2 g/dL (30-55); Mean Corpuscular Hemoglobin 30.8 pg (27-33); Mean Corpuscular Volume 92.8 fl (82-101); Mean Platelet Volume 9.8 fL (7.4-10.4); Monocytes # 0.6 10^3/uL (0.2-0.9); Monocytes % 5.9 %; Neutrophils # 8.21 10^3/uL (1.8-7.7); Nucleated Red Blood Cells % 0 %; Platelet Count 178 10^3/cmm (157-399); Red Blood Count 5.55 10^6/uL (3.85-5.65); Red Cell Distribution Width 13.7 % (12.1-15.1); White Blood Count 10.25 10^3/uL (3.29-11.43)
[2024-09-06 23:18] VITALS: PULSE 81; RESP 19; O2SAT 91
[2024-09-06 23:30] VITALS: BP 124/73
[2024-09-06 23:35] LABS: Alanine Aminotransferase 18 U/L (0-41); Albumin Level 3.8 g/dL (3.5-5.2); Alkaline Phosphatase 76 U/L (40-130); Aspartate Amino Transferase 17 U/L (0-40); Blood Urea Nitrogen 16 mg/dL (8-23); Calcium 8.6 mg/dL (8.5-10.5); Carbon Dioxide 25 mmol/L (22-29); Chloride 105 mmol/L (98-107); Globulin 2.4 g/dL (1.3-4.6); Glomerular Filtration Rate 114.3 mL/min (90-130); Glucose 218 mg/dL (65-115); Osmolality Calculated 302 mOsm/kg (285-295); Sodium 142 mmol/L (136-145); Total Bilirubin 0.3 mg/dL (0.15-1.2); Total Protein 6.2 g/dL (6.6-8.7)
[2024-09-06 23:45] VITALS: BP 132/69; PULSE 81; O2SAT 95
[2024-09-06 23:47] LABS: Lactic Sepsis W/Reflex 1.4 mmol/L (0.5-2.2)
[2024-09-06 23:49] LABS: Troponin(5th) Baseline 33 ng/L (0-15)
[2024-09-06 23:52] LABS: Covid PCR NEGATIVE (Negative); Influenza A NEGATIVE (Negative); Influenza B NEGATIVE (Negative); Respiratory Syncytial Virus Ce NEGATIVE (Negative)
[2024-09-07] VITALS (10 sets, daily range): BP systolic 112–139; BP diastolic 63–78; PULSE 73–92; RESP 15–19; O2SAT 89–96
[2024-09-07 01:03] LABS: Bacteria Urine None Seen /hpf; Hyaline Casts Urine 0-4 /lpf; RBC Urine 0-2 /hpf (0-2); Squamous Epithelial Cell Urine 0-5 /hpf (0-5); WBC Urine 0-5 /hpf (0-5)
[2024-09-07 01:29] LABS: Troponin 5 2HR 30.26 ng/L (0-15)
[2024-09-07 01:32] LABS: Troponin 5 2HR Delta -2.74 ABS# (0-10)
[2024-09-07 01:32] LABS: Bilirubin Urine Negative (Negative); Blood Urine Negative (Negative); Glucose Urine UA 3+ (Normal); Ketones Urine 1+ (Negative); Leukocyte Esterase Urine Negative (Negative); Nitrate Urine Negative (Negative); Protein Urine Negative (Negative); Urine Color Yellow (Yellow); pH Urine 5.5 (5-7)
[2024-09-07 01:34] LABS: Specific Gravity, Urine 1.031 (1.005-1.030); Urine Appearance Clear (CLEAR)
== END 2024-09-07 02:32 | disposition home or self-care (01) ==
PROVIDERS: Emergency Provider Emergency Medicine; PCP Family Medicine
DX: R55 Syncope and collapse (principal); Z11.52 Encounter for screening for COVID-19; Z79.01 Long term (current) use of anticoagulants; F17.210 Nicotine dependence, cigarettes, uncomplicated; Z86.711 Personal history of pulmonary embolism; E11.9 Type 2 diabetes mellitus without complications; I10 Essential (primary) hypertension
CPT/HCPCS: 0241U; 36415; 70450; 71045; 80053; 81001; 83605; 84484; 85025; 87040; 93005; 99285

== ENCOUNTER → 2024-11-21 09:28 | Outpatient (BNVA) | payer MEDICAID, SELFPAY | PROVIDERS: PCP Family Medicine; Visit Provider Family Medicine | DX: E11.9 Type 2 diabetes mellitus without complications (principal); Z51.81 Encounter for therapeutic drug level monitoring | CPT/HCPCS: 83036; 85025 ==

== ENCOUNTER → 2024-12-07 10:30 | Outpatient (BNVA) | payer MEDICAID, SELFPAY | PROVIDERS: PCP Family Medicine; Visit Provider Podiatrist Foot & Ankle Surgery | DX: M79.671 Pain in right foot (principal); M79.672 Pain in left foot; E11.42 Type 2 diabetes mellitus with diabetic polyneuropathy; L90.9 Atrophic disorder of skin, unspecified; M77.41 Metatarsalgia, right foot; M77.42 Metatarsalgia, left foot; G62.9 Polyneuropathy, unspecified | CPT/HCPCS: 73630; 99203 ==

== ENCOUNTER → 2025-03-12 09:33 | Outpatient (BNVA) | payer MEDICAID, SELFPAY | PROVIDERS: PCP Family Medicine; Visit Provider Family Medicine | DX: Z00.00 Encounter for general adult medical examination without abnormal findings (principal); Z51.81 Encounter for therapeutic drug level monitoring; E03.9 Hypothyroidism, unspecified; E11.9 Type 2 diabetes mellitus without complications; E53.8 Deficiency of other specified B group vitamins | CPT/HCPCS: 80053; 82607; 83036; 84153; 84439; 84443; 85025 ==

== ENCOUNTER → 2025-05-02 07:33 | Outpatient (BNVA) | payer MEDICAID, SELFPAY | PROVIDERS: PCP Family Medicine; Referring Provider Family Medicine; Visit Provider Psychiatry & Neurology Neurology | DX: H93.13 Tinnitus, bilateral (principal); R51.9 Headache, unspecified; Z87.828 Personal history of other (healed) physical injury and trauma; R01.2 Other cardiac sounds; Z86.711 Personal history of pulmonary embolism; R55 Syncope and collapse | CPT/HCPCS: 99203 ==

== ENCOUNTER → 2025-05-09 07:31 | Outpatient (BNVA) | payer MEDICAID, SELFPAY | PROVIDERS: PCP Family Medicine; Referring Provider Psychiatry & Neurology Neurology; Visit Provider Psychiatry & Neurology Neurology | DX: R56.9 Unspecified convulsions (principal) | CPT/HCPCS: 95813; 95819 ==

== ENCOUNTER 2025-05-17 07:04 | Oncology outpatient (recurring) (ONCR) | payer MEDICAID, SELFPAY ==
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
[2025-05-17] MEDS: iohexol 350 mg/mL 500 mL Btl (per mL) IV (08:06)
[2025-05-17 12:52] LABS: Blood Urea Nitrogen 16 mg/dL (8-23)
== END 2025-06-03 23:59 | disposition home or self-care (01) ==
LOC: RAD 07:05 → ONCMED 09:12
PROVIDERS: Psychiatry & Neurology Neurology; PCP Family Medicine; Visit Provider Internal Medicine
DX: H93.13 Tinnitus, bilateral (principal); R51.9 Headache, unspecified; Z87.828 Personal history of other (healed) physical injury and trauma; I65.23 Occlusion and stenosis of bilateral carotid arteries; R93.0 Abnormal findings on diagnostic imaging of skull and head, not elsewhere classified; R93.89 Abnormal findings on diagnostic imaging of other specified body structures; M48.02 Spinal stenosis, cervical region; M25.78 Osteophyte, vertebrae
CPT/HCPCS: 70496; 70498; 73630; 82565; 84520; 99203

== ENCOUNTER → 2025-06-14 10:37 | Outpatient (BNVA) | payer MEDICAID, SELFPAY | PROVIDERS: PCP Family Medicine; Visit Provider Podiatrist Foot & Ankle Surgery | DX: E11.8 Type 2 diabetes mellitus with unspecified complications (principal); L90.9 Atrophic disorder of skin, unspecified; M77.41 Metatarsalgia, right foot; M77.42 Metatarsalgia, left foot; G62.9 Polyneuropathy, unspecified | CPT/HCPCS: 99213 ==

== ENCOUNTER → 2025-07-26 08:24 | Outpatient (BNVA) | payer MEDICAID, SELFPAY | PROVIDERS: PCP Family Medicine; Visit Provider Family Medicine | DX: E11.9 Type 2 diabetes mellitus without complications (principal) | CPT/HCPCS: 83036 ==